=== PATIENT | female | born 1935 | race Caucasian/White ===

== ENCOUNTER → 2017-01-13 | Outpatient (CLI) | payer MEDICARE ==
--- NOTE | 2017-01-16 08:03 | MM ---
Reason for exam: screening (asymptomatic). Last mammogram was performed 2 years and 6 months ago. History: Patient is postmenopausal. Family history of breast cancer in maternal grandmother at age 65. Benign cyst aspiration of the left breast, December 03, 2007. Physical Findings: A clinical breast exam by your physician is recommended on an annual basis and results should be correlated with mammographic findings. MG Screening Mammo w CAD Bilateral CC and MLO view(s) were taken. Prior study comparison: July 08, 2014, bilateral MG screening mammo w CAD. June 18, 2013, bilateral digital screening mammo w/CAD. The breast tissue is heterogeneously dense. This may lower the sensitivity of mammography. Finding: There are typically benign calcifications in both breasts. No significant changes in finding since July 08, 2014 and June 18, 2013. ASSESSMENT: Benign, BI-RAD 2 RECOMMENDATION: Routine screening mammogram of both breasts in 1 year.
== END | disposition home or self-care (01) ==
LOC: RADMAMWWP 10:58
PROVIDERS: ATTEND Obstetrics & Gynecology
DX: Z12.31 Encounter for screening mammogram for malignant neoplasm of breast (principal)

== ENCOUNTER → 2017-12-22 | Outpatient (CLI) | payer MEDICARE ==
--- NOTE | 2017-12-22 13:49 | US ---
EXAMINATION TYPE: US kidneys/renal and bladder DATE OF EXAM: 12/22/2017 COMPARISON: NONE CLINICAL HISTORY: N28.9 Disorder of kidney and ureter; urinary incontinence per patient EXAM MEASUREMENTS: Right Kidney: 9.8 x 4.4 x 3.8 cm Left Kidney: 9.3 x 5.8 x 4.5 cm Post Void Residual Volume: 39.3 mL Right Kidney: No hydronephrosis or masses seen Left Kidney: No hydronephrosis or masses seen Bladder: wnl Bilateral Jets seen: Yes Normal Post Void Residual: yes, although patient attempted to void x 2 to achieve post void volume There is no evidence for hydronephrosis at this point in time. No nephrolithiasis is seen. No asha s are identified. The urinary bladder is anechoic. Bilateral ureteral jets are seen. IMPRESSION: 1. No evidence of hydronephrosis or nephrolithiasis. 2. Post void residual volume within the urinary bladder is upper limits of normal although the patien t attempted to void twice to achieve a normal post void volume.
== END | disposition home or self-care (01) ==
LOC: RADUSWWP 12:36
PROVIDERS: ATTEND Family Medicine
DX: N28.9 Disorder of kidney and ureter, unspecified (principal)
CPT/HCPCS: 76770

== ENCOUNTER → 2019-08-06 | Outpatient (CLI) | payer MEDICARE ==
--- NOTE | 2019-08-08 14:15 | MM ---
Reason for exam: screening (asymptomatic). Last mammogram was performed 2 years and 7 months ago. History: Patient is postmenopausal. Family history of breast cancer in maternal grandmother at age 65. Benign cyst aspiration of the left breast, December 03, 2007. Physical Findings: A clinical breast exam by your physician is recommended on an annual basis and results should be correlated with mammographic findings. MG Screening Mammo w CAD Bilateral CC and MLO view(s) were taken. Prior study comparison: January 13, 2017, bilateral MG screening mammo w CAD. July 08, 2014, bilateral MG screening mammo w CAD. The breast tissue is heterogeneously dense. This may lower the sensitivity of mammography. Benign oil cyst and vascular calcifications. No significant changes when compared with prior studies. ASSESSMENT: Benign, BI-RAD 2 RECOMMENDATION: Routine screening mammogram of both breasts in 1 year.
== END | disposition home or self-care (01) ==
LOC: RADMAMWWP 10:26
PROVIDERS: ATTEND Obstetrics & Gynecology
DX: Z12.31 Encounter for screening mammogram for malignant neoplasm of breast (principal)
CPT/HCPCS: 77067

== ENCOUNTER 2021-01-11 07:31 | Emergency (ER) | payer MEDICARE ==
[2021-01-11 07:44] VITALS: RESP 18; TEMP 98.7
[2021-01-11] MEDS ORDERED: KETOROLAC 15 MG/ML 1 ML VIAL IM STA (07:55)
--- NOTE | 2021-01-11 07:58 | ED ---
General Adult HPI - General Chief complaint: Extremity Injury, Upper Stated complaint: shoulder pain Time Seen by Provider: 01/11/21 07:46 Source: patient, RN notes reviewed Mode of arrival: ambulatory Limitations: no limitations - History of Present Illness Initial comments: 85-year-old female with a past medical history of hyperlipidemia, hypertension, GERD presents to the emergency room for chief, L left shoulder pain. Patient reports she has had pain in the left shoulder since yesterday. She states she was taking off her shirt yesterday and felt a pop and a crunch in her left shoulder. States the pain persisted throughout the night. Patient reports she wants to make sure it is not dislocated. States it hurts to raise the shoulder.Patient has no other complaints at this time including shortness of breath, chest pain, abdominal pain, nausea or vomiting, headache, or visual changes. - Related Data Allergies Allergy/AdvReac Type Severity Reaction Status Date / Time procaine [From Novocain] AdvReac Unknown Verified 01/11/21 07:45 Review of Systems ROS Statement: Those systems with pertinent positive or pertinent negative responses have been documented in the HPI. ROS Other: All systems not noted in ROS Statement are negative. Past Medical History Past Medical History: GERD/Reflux, Hyperlipidemia, Hypertension History of Any Multi-Drug Resistant Organisms: None Reported Past Surgical History: Cholecystectomy Past Psychological History: Anxiety Smoking Status: Never smoker Past Alcohol Use History: None Reported Past Drug Use History: None Reported General Exam Limitations: no limitations General appearance: alert, in no apparent distress Head exam: Present: atraumatic, normocephalic, normal inspection Eye exam: Present: normal appearance, PERRL, EOMI. Absent: scleral icterus, conjunctival injection, periorbital swelling ENT exam: Present: normal exam, mucous membranes moist Neck exam: Present: normal inspection, full ROM. Absent: tenderness, meningismus, lymphadenopathy Respiratory exam: Present: normal lung sounds bilaterally. Absent: respiratory distress, wheezes, rales, rhonchi, stridor Cardiovascular Exam: Present: regular rate, normal rhythm, normal heart sounds. Absent: systolic murmur, diastolic murmur, rubs, gallop, clicks GI/Abdominal exam: Present: soft, normal bowel sounds. Absent: distended, tenderness, guarding, rebound, rigid Extremities exam: Present: full ROM (pt has about 45 flexion and abduction of the left shoulder.), normal capillary refill (cap refill < 2 seconds, radial pulse 2+). Absent: tenderness (no tenderness in the RUE), pedal edema, joint swelling, calf tenderness Course Vital Signs 01/11/21 07:40 Temperature 98.7 F Pulse Rate 73 Respiratory 18 Rate Blood Pressure 151/80 O2 Sat by Pulse 94 L Oximetry Medical Decision Making - Medical Decision Making Vitals are stable. Patient is well-appearing. X-ray of the shoulder and left humerus were obtained. No acute fracture or dislocation in the left humerus or shoulder. I suspect patient likely has a soft tissue injury given mechanism of injury and feeling a pop as well as pain with movement of the shoulder. She was given IM pain medication which did help somewhat. At this time I recommend she takes Tylenol at home and follow up with orthopedics. Referral will be given. She also [facility] well as the on-call orthopedic doctor at . I did discuss risks versus benefits of sling including frozen shoulder. At this time patient is agreeable to discharge home without a sling and doing gentle range of motion. Disposition Clinical Impression: Shoulder pain, left Disposition: HOME SELF-CARE Condition: Good Additional Instructions: Please take Tylenol for pain. Do gentle range of motion with the left shoulder. Follow-up with orthopedics a call in today for the earliest appointment. Return to the emergency room for any worsening symptoms. Is patient prescribed a controlled substance at d/c from ED?: No Referrals: Bayron Sherman DO [Primary Care Provider] - 1-2 days Mikey Villegas DO [Doctor of Osteopathic Medicine] - 1-2 days Varghese Jessica DO [Doctor of Osteopathic Medicine] - 1-2 days Time of Disposition: 08:51
--- NOTE | 2021-01-11 08:23 | XR ---
EXAMINATION TYPE: XR shoulder complete LT, XR humerus LT DATE OF EXAM: 01/11/2021 CLINICAL HISTORY: Pain and limited range of motion after recent injury. TECHNIQUE: Three views of the left shoulder are obtained. 2 views left humerus. COMPARISON: None. FINDINGS: Negative osseous structures are somewhat demineralized. There is no acute fracture/disloca tion evident in the left shoulder. Mild to moderate narrowing and moderate spurring at acromioclavicu lar joint. Mild to moderate narrowing and mild spurring inferior glenohumeral joint.. The visualized ribs are intact and unremarkable. Overlying clothing material is seen. 2 views of left humerus show no acute fracture or dislocation. Visualized portion of left elbow joint appears within normal limits. IMPRESSION: There is no acute fracture or dislocation in the left humerus or shoulder.
[2021-01-11 09:20] VITALS: BP 122/73; PULSE 71
== END 2021-01-11 09:19 | disposition home or self-care (01) ==
LOC: EC 07:31
DX: M25.512 Pain in left shoulder (principal); M79.89 Other specified soft tissue disorders; E78.5 Hyperlipidemia, unspecified; I10 Essential (primary) hypertension; K21.9 Gastro-esophageal reflux disease without esophagitis
CPT/HCPCS: 73030; 73060; 99283; 96372; J1885

== ENCOUNTER 2022-02-07 19:36 | Emergency (ER) | payer MEDICARE ==
[2022-02-07 19:49] LABS: Glucose,Whole Blood 159 mg/dL (70-110)
--- NOTE | 2022-02-07 19:51 | ED ---
General Adult HPI - General Chief complaint: Fall Stated complaint: Fall, Altered Mental Status Time Seen by Provider: 02/07/22 19:41 Source: EMS Mode of arrival: EMS Limitations: altered mental status - History of Present Illness Initial comments: Dictation was produced using [employer] dictation software. please excuse any grammatical, word or spelling errors. Chief Complaint: 86-year-old female presents emergency Department with altered mental status and evidence of head injury History of Present Illness: Patient is a 86-year-old female presents to the emergency department via EMS. Patient is unable to provide history of present at this time. History of present illness obtained from nurse was a report from EMS. Patient allegedly has a history of GERD, dyslipidemia and hypertension. She was last spoke to at approximately 7 AM this morning. Throughout the day people have been trying to contact her and were able to get a hold of her. Patient's daughter went to her house and saw her lying on the ground covered in vomit. Patient does not follow commands. Unable to obtain ROS second or 2 mental status. PHYSICAL EXAM: General Impression: Eyes open, not following commands, anal time 0 out of 3 HEENT: Ecchymoses over the right forehead and periorbital space, Very superficial lacerations to the right maxillary area measuring 1-2 mm each, no nasal septal hematoma, extra-ocular movements intact, pupils equal and reactive to light bilaterally, mucous membranes moist. Cardiovascular: Heart regular rate and rhythm Chest: no retractions, no tachypnea Abdomen: abdomen soft, non-tender, non-distended, no organomegaly Musculoskeletal: Pulses present and equal in all extremities, no peripheral edema Motor: no focal deficits noted Neurological: CN II-XII grossly intact, moves all extremities secondary to noxious stimuli Skin: Intact with no visualized rashes ED course: 86-year-old female presents to the emergency department for altered mental status and concerns of fall. No other history of present illness details are able to be obtained. Patient is evidence of head injury. She's not follow commands. Suspect that patient is high functioning. Follows on with this. Patient is reevaluated at 8:15 PM. Family is at bedside reports that patient lives alone. So allegedly spoke with patient at around 9 AM today she appeared to not be in any sort of distress. Family went to see her today she was found on a rocking chair. EMS reports the patient is high functioning is by herself and has no trouble perform activities of daily living on a regular basis.History was obtained from daughter who is now at the bedside reports that patient was last seen physically normal at around 2 PM yesterday. She did however speak with her over the phone and sounded like patient was at baseline. Family requests aggressive treatment. Computed tomography scan of brain and C-spine shows no acute processes however CT angios shows findings suspicious for stenosis or thrombosis of the left middle cerebral artery. Spoke immediately with stroke neurologist, Dr. Loo who requests access to the CT films. EKG interpretation: Ventricular rate 89, sinus rhythm,. 190, Q 74, QTC 391. No TX prolongation, no QTC prolongation, no ST or T-wave changes noted. No old EKG for comparison Overall, this EKG is unremarkable Spoke with Dr. Loo who reviewed the films and evaluated patient and spoke with family over the stroke robot. Plan is to transfer patient to [facility] to the interventional catheterization lab to have emergent endovascular treatment. Confirmed with [facility] transfer line that they are expecting patient. accepting physician is Dr. Loo, he did speak with ER team and at [facility] ER - Related Data Home Medications Medication Instructions Recorded Confirmed ALPRAZolam [Xanax] 0.5 mg PO BID PRN 01/11/21 01/11/21 Atorvastatin [Lipitor] 20 mg PO HS 01/11/21 01/11/21 Calcium Carbonate [Calcium] 600 mg PO DAILY 01/11/21 01/11/21 Cholecalciferol (Vitamin D3) 75 mcg PO DAILY 01/11/21 01/11/21 [Vitamin D3 (3000 Iu)] Esomeprazole Magnesium [NexIUM] 40 mg PO DAILY 01/11/21 01/11/21 Metoprolol Succinate (ER) [Toprol 50 mg PO DAILY 01/11/21 01/11/21 Xl] Multivitamins, Thera [Multivitamin 1 tab PO DAILY 01/11/21 01/11/21 (formulary)] Sucralfate [Carafate] 1 gm PO DAILY 01/11/21 01/11/21 Vitamin E (Dl,Tocopheryl Acet) 400 unit PO DAILY 01/11/21 01/11/21 [Vitamin E] rOPINIRole HCL [Requip] 0.5 mg PO HS 01/11/21 01/11/21 Allergies Allergy/AdvReac Type Severity Reaction Status Date / Time procaine [From Novocain] Allergy Unknown Verified 02/07/22 19:38 Review of Systems ROS Statement: Those systems with pertinent positive or pertinent negative responses have been documented in the HPI. ROS Other: All systems not noted in ROS Statement are negative. Past Medical History Past Medical History: GERD/Reflux, Hyperlipidemia, Hypertension History of Any Multi-Drug Resistant Organisms: None Reported Past Surgical History: Cholecystectomy Past Psychological History: Anxiety Smoking Status: Never smoker Past Alcohol Use History: None Reported Past Drug Use History: None Reported General Exam Limitations: altered mental status Course Vital Signs 02/07/22 19:38 Pulse Rate 73 Respiratory 16 Rate O2 Sat by Pulse 98 Oximetry Procedures - Laceration Laceration #1 Consent Obtained: verbal consent, emergent situation Indication: laceration Site: face (1cm right maxilla) Description: linear Depth: simple, single layer Size of Sutures: other (dermabond) Technique: other (dermabond) Patient Tolerated Procedure: well Medical Decision Making - Lab Data Result diagrams: 02/07/22 20:09 02/07/22 20:09 Lab Results 02/07/22 02/07/22 02/07/22 Range/Units 19:48 20:09 20:09 WBC 15.0 H (3.8-10.6) k/uL RBC 4.57 (3.80-5.40) m/uL Hgb 14.0 (11.4-16.0) gm/dL Hct 40.7 (34.0-46.0) % MCV 89.3 (80.0-100.0) fL MCH 30.7 (25.0-35.0) pg MCHC 34.4 (31.0-37.0) g/dL RDW 13.3 (11.5-15.5) % Plt Count 367 (150-450) k/uL MPV 8.3 Neutrophils % 86 % Lymphocytes % 9 % Monocytes % 3 % Eosinophils % 0 % Basophils % 0 % Neutrophils # 12.9 H (1.3-7.7) k/uL Lymphocytes # 1.4 (1.0-4.8) k/uL Monocytes # 0.5 (0-1.0) k/uL Eosinophils # 0.1 (0-0.7) k/uL Basophils # 0.1 (0-0.2) k/uL PT 10.7 (9.0-12.0) sec INR 1.0 (<1.2) APTT 21.7 L (22.0-30.0) sec Sodium (137-145) mmol/L Potassium (3.5-5.1) mmol/L Chloride (98-107) mmol/L Carbon Dioxide (22-30) mmol/L Anion Gap mmol/L BUN (7-17) mg/dL Creatinine (0.52-1.04) mg/dL Est GFR (CKD-EPI)AfAm (>60 ml/min/1.73 sqM) Est GFR (CKD-EPI)NonAf (>60 ml/min/1.73 sqM) Glucose (74-99) mg/dL POC Glucose (mg/dL) 159 H (70-110) mg/dL POC Glu [employer] Associate ID Kamron Edward Plasma Lactic Acid Miki (0.7-2.0) mmol/L Calcium (8.4-10.2) mg/dL Magnesium (1.6-2.3) mg/dL Total Bilirubin (0.2-1.3) mg/dL AST (14-36) U/L ALT (4-34) U/L Alkaline Phosphatase (38-126) U/L Troponin I (0.000-0.034) ng/mL Total Protein (6.3-8.2) g/dL Albumin (3.5-5.0) g/dL TSH (0.465-4.680) mIU/L 02/07/22 02/07/22 02/07/22 Range/Units 20:09 20:09 20:09 WBC (3.8-10.6) k/uL RBC (3.80-5.40) m/uL Hgb (11.4-16.0) gm/dL Hct (34.0-46.0) % MCV (80.0-100.0) fL MCH (25.0-35.0) pg MCHC (31.0-37.0) g/dL RDW (11.5-15.5) % Plt Count (150-450) k/uL MPV Neutrophils % % Lymphocytes % % Monocytes % % Eosinophils % % Basophils % % Neutrophils # (1.3-7.7) k/uL Lymphocytes # (1.0-4.8) k/uL Monocytes # (0-1.0) k/uL Eosinophils # (0-0.7) k/uL Basophils # (0-0.2) k/uL PT (9.0-12.0) sec INR (<1.2) APTT (22.0-30.0) sec Sodium 138 (137-145) mmol/L Potassium 4.7 (3.5-5.1) mmol/L Chloride 101 (98-107) mmol/L Carbon Dioxide 26 (22-30) mmol/L Anion Gap 11 mmol/L BUN 24 H (7-17) mg/dL Creatinine 1.02 (0.52-1.04) mg/dL Est GFR (CKD-EPI)AfAm 59 (>60 ml/min/1.73 sqM) Est GFR (CKD-EPI)NonAf 51 (>60 ml/min/1.73 sqM) Glucose 147 H (74-99) mg/dL POC Glucose (mg/dL) (70-110) mg/dL POC Glu [employer] Associate ID Plasma Lactic Acid Miki 2.3 H* (0.7-2.0) mmol/L Calcium 9.0 (8.4-10.2) mg/dL Magnesium 2.1 (1.6-2.3) mg/dL Total Bilirubin 0.9 (0.2-1.3) mg/dL AST 36 (14-36) U/L ALT 19 (4-34) U/L Alkaline Phosphatase 96 (38-126) U/L Troponin I <0.012 (0.000-0.034) ng/mL Total Protein 8.6 H (6.3-8.2) g/dL Albumin 4.5 (3.5-5.0) g/dL TSH 1.330 (0.465-4.680) mIU/L Critical Care Time Critical Care Time: Yes Total Critical Care Time: 33 Disposition Clinical Impression: CVA (cerebral vascular accident) Disposition: OTHER INSTITUTION NOT DEFINED Condition: Critical Referrals: Bayron Sherman DO [Primary Care Provider] - 1-2 days Time of Disposition: 21:32 - Out of Hospital Transfer - Req. Specs Out of Hospital Transfer - Requested Specifics: Other Emergency Center ([facility])
--- NOTE | 2022-02-07 20:05 | CT ---
EXAMINATION TYPE: CT brain rodríguezine wo con DATE OF EXAM: 02/07/2022 COMPARISON: None HISTORY: Fall, altered mental status. CT DLP: 1351.5 mGycm Automated exposure control for dose reduction was used. Images of the brain and cervical spine obtained with no contrast. There is mild cerebral atrophy. There is no mass effect or midline shift. No sign of intracranial hem orrhage. The calvarium is intact. The cervical vertebra have normal alignment. Disc spaces are fairly normal. No compression fracture. Posterior elements are intact. Prevertebral soft tissues are intact. IMPRESSION: Negative CT scan of the cervical spine. Negative CT scan of the brain. Mild right frontal scalp soft tissue swelling noted.
[2022-02-07] MEDS ORDERED: DIPH,PERTUS(ACELL)TETVAC-LF 0.5 ML VIAL IM ONE (20:16)
[2022-02-07 20:18] LABS: Basophils # (A) 0.1 k/uL (0-0.2); Basophils % (A) 0 %; Eosinophils # (A) 0.1 k/uL (0-0.7); Eosinophils % (A) 0 %; HCT 40.7 % (34.0-46.0); Lymphocytes # (A) 1.4 k/uL (1.0-4.8); Lymphocytes % (A) 9 %; MCH 30.7 pg (25.0-35.0); MCHC 34.4 g/dL (31.0-37.0); MCV 89.3 fL (80.0-100.0); Mean Platelet Volume 8.3; Monocytes # (A) 0.5 k/uL (0-1.0); Monocytes % (A) 3 %; Neutrophils # (A) 12.9 k/uL (1.3-7.7); Neutrophils % (A) 86 %; Platelet Count 367 k/uL (150-450); RBC 4.57 m/uL (3.80-5.40); RDW 13.3 % (11.5-15.5)
--- NOTE | 2022-02-07 20:23 | CT ---
EXAMINATION TYPE: CT angio head neck DATE OF EXAM: 02/07/2022 COMPARISON: None HISTORY: Weakness CT DLP: mGycm Automated exposure control for dose reduction was used. CONTRAST: Images obtained from the thoracic aortic arch to the vertex of the brain with the IV contrast. There are Three-D postprocessed images. FINDINGS: There is normal branching pattern of the great vessels on the aortic arch. There is bilateral arteria l flow in the subclavian arteries. There is arterial flow in the common internal and external carotid arteries bilaterally. There is wide patency of the carotid artery bifurcations. There is arterial fl ow in both vertebral arteries. There is arterial flow in the vertebrobasilar artery system. There is arterial flow in the anterior middle and posterior cerebral arteries bilaterally. There appe ars to be significant pruning of branches of the left middle cerebral artery at the anterior sylvian fissure. There is normal enhancement of the venous sinuses. No evidence of intracranial aneurysm or neovascula rity. No mass effect. IMPRESSION: Negative CT angiogram of the neck. There is long segment of absent flow or very little contrast in the left middle cerebral artery in th e left sylvian fissure and consistent with thrombosis or significant stenosis. There is filling of some of the distal branches. There is noted right frontal scalp soft tissue swelling
[2022-02-07] MEDS ORDERED: ASPIRIN 81 MG PO STA ×2 (20:28→20:50)
[2022-02-07] MEDS ORDERED: TOPICAL SKIN ADHESIVE 1 EACH AMP TOPICAL ONE (20:32)
[2022-02-07 20:33] LABS: Prothrombin Time 10.7 sec (9.0-12.0)
[2022-02-07 20:34] LABS: Albumin 4.5 g/dL (3.5-5.0); Magnesium 2.1 mg/dL (1.6-2.3); Potassium 4.7 mmol/L (3.5-5.1); Total Bilirubin 0.9 mg/dL (0.2-1.3); Total Protein 8.6 g/dL (6.3-8.2)
[2022-02-07] MEDS ORDERED: SODIUM CHLORIDE 0.9% 1,000 ML IV STA (20:37)
[2022-02-07 20:52] LABS: Partial Thromboplastin Time 21.7 sec (22.0-30.0)
[2022-02-07 22:13] VITALS: BP 149/72; PULSE 81
[2022-02-07 22:14] VITALS: RESP 12
== END 2022-02-07 22:00 | disposition other institution (70) ==
LOC: EC 19:36
DX: I63.9 Cerebral infarction, unspecified (principal); Z88.4 Allergy status to anesthetic agent; E78.5 Hyperlipidemia, unspecified; I10 Essential (primary) hypertension; W19.XXXA Unspecified fall, initial encounter
CPT/HCPCS: 12011 ×2; 99291 ×2; 90471 ×2; 96361 ×2; 96360 ×2; 36415; 93005; 80053; 83605; 83735; 84443; 84484; 85025; 85610; 85730; 72125; 70496; 70450; 70498; 90715; Q9967

== ENCOUNTER → 2022-03-15 | Outpatient (CLI) | payer MEDICARE ==
[2022-03-15 18:15] LABS: HCT 40.6 % (37.2-46.3); HGB 13.4 g/dL (12.0-15.0); MCH 29.7 pg (27.0-32.0); Mean Platelet Volume 10.4 fL (9.5-12.2); NRBC Per 100 WBC 0 /100 WBCS (0.0-0.0); Platelet Count 347 X 10*3/uL (140-440); RBC 4.51 X 10*6/uL (4.10-5.20); RDW 13.6 % (11.5-14.5); WBC 5.37 X 10*3/uL (4.50-10.00)
[2022-03-15 19:08] LABS: African American GFR (CKD) 48.1 (60.0-200.0); Anion Gap 12.1 mmol/L (10.00-18.00); Blood Urea Nitrogen 13.2 mg/dL (9.0-27.0); Calcium 9.4 mg/dL (8.7-10.3); Carbon Dioxide 23.9 mmol/L (20.0-27.5); Non-African American GFR(CKD) 41.5 (60.0-200.0); Potassium 4.2 mmol/L (3.5-5.5)
== END | disposition home or self-care (01) ==
LOC: LABWHC1 11:03
PROVIDERS: ATTEND Internal Medicine Interventional Cardiology
DX: I48.0 Paroxysmal atrial fibrillation (principal)
CPT/HCPCS: 36415; 80048; 84443; 85027

== ENCOUNTER 2023-01-05 09:43 | Emergency (ER) | payer MEDICARE ==
[2023-01-05] MEDS ORDERED: ALPRAZolam 0.25 MG TAB PO STA (10:05)
[2023-01-05 10:28] LABS: Basophils % (A) 1 %; Eosinophils # (A) 0.1 k/uL (0-0.7); Eosinophils % (A) 3 %; HCT 39.8 % (34.0-46.0); HGB 13.5 gm/dL (11.4-16.0); Lymphocytes # (A) 1.5 k/uL (1.0-4.8); Lymphocytes % (A) 37 %; MCH 28.9 pg (25.0-35.0); MCHC 33.8 g/dL (31.0-37.0); MCV 85.5 fL (80.0-100.0); Mean Platelet Volume 7.5; Monocytes # (A) 0.4 k/uL (0-1.0); Monocytes % (A) 9 %; Neutrophils # (A) 1.9 k/uL (1.3-7.7); Neutrophils % (A) 48 %; Platelet Count 330 k/uL (150-450); RBC 4.65 m/uL (3.80-5.40); RDW 13.2 % (11.5-15.5); WBC 4.1 k/uL (3.8-10.6)
[2023-01-05 10:38] LABS: Albumin 4.3 g/dL (3.5-5.0); Calcium 9.4 mg/dL (8.4-10.2); Magnesium 2.3 mg/dL (1.6-2.3); Potassium 4.1 mmol/L (3.5-5.1); Total Bilirubin 0.6 mg/dL (0.2-1.3); Total Protein 8.1 g/dL (6.3-8.2)
[2023-01-05 10:40] LABS: INR 1.1 (<1.2); Partial Thromboplastin Time 25.1 sec (22.0-30.0); Prothrombin Time 11.1 sec (9.0-12.0)
--- NOTE | 2023-01-05 10:50 | XR ---
EXAMINATION TYPE: XR chest 2V DATE OF EXAM: 01/05/2023 COMPARISON: None HISTORY: 87 year-old female shortness of breath, difficulty breathing, irregular heartbeat TECHNIQUE: AP and lateral views FINDINGS: Heart mildly enlarged. Loop recorder device projects over the left side of the heart. Hyperinflation. Diffuse interstitial density. Possible additional lower thoracic spine. No consolidation or pleural effusion seen. IMPRESSION: Borderline heart size and COPD. Interstitial prominence could reflect bronchitis or chronic asthma. N o focal infiltrate seen.
--- NOTE | 2023-01-05 10:52 | ED ---
General Adult HPI - General Chief complaint: Shortness of Breath Stated complaint: shortness of breath Time Seen by Provider: 01/05/23 09:49 Source: patient, RN notes reviewed, old records reviewed Mode of arrival: ambulatory Limitations: no limitations - History of Present Illness Initial comments: Patient is an 87-year-old female with past medical history remarkable for atrial fibrillation on blood thinners, hypertension, acid reflux, prior stroke, anxiety who presents complaining of progressively worsening shortness of breath for the last 6 months. Denies any lower extremity edema. States she experiences it on a daily basis and it does improve with Xanax. States she woke this morning and was more concerned that she states was somewhat worse in terms of her shortness of breath which is why she presents. States she also gets some heart pa lpitations with it. Feels her heart racing. States his symptoms have passed. He feels improved at this time. Presents for further evaluation at this time. Denies any falls or trauma. Denies any abdominal pain, nausea, vomiting. States symptoms, and go. No known provocative factors however Xanax does seem to help. She does have a heart monitor and she attributes a lot of her symptoms to this heart monitor. Denies any other acute complaints at this time. Presents here for further evaluation at this time with some what chronic symptoms. - Related Data Home Medications Medication Instructions Recorded Confirmed ALPRAZolam [Xanax] 0.5 mg PO BID PRN 01/11/21 01/11/21 Atorvastatin [Lipitor] 20 mg PO HS 01/11/21 01/11/21 Calcium Carbonate [Calcium] 600 mg PO DAILY 01/11/21 01/11/21 Cholecalciferol (Vitamin D3) 75 mcg PO DAILY 01/11/21 01/11/21 [Vitamin D3 (3000 Iu)] Esomeprazole Magnesium [NexIUM] 40 mg PO DAILY 01/11/21 01/11/21 Metoprolol Succinate (ER) [Toprol 50 mg PO DAILY 01/11/21 01/11/21 Xl] Multivitamins, Thera [Multivitamin 1 tab PO DAILY 01/11/21 01/11/21 (formulary)] Sucralfate [Carafate] 1 gm PO DAILY 01/11/21 01/11/21 Vitamin E (Dl,Tocopheryl Acet) 400 unit PO DAILY 01/11/21 01/11/21 [Vitamin E] rOPINIRole HCL [Requip] 0.5 mg PO HS 01/11/21 01/11/21 Allergies Allergy/AdvReac Type Severity Reaction Status Date / Time procaine [From Novocain] Allergy Unknown Verified 01/05/23 09:48 Review of Systems ROS Statement: Those systems with pertinent positive or pertinent negative responses have been documented in the HPI. Review of Systems: CONST: Denies fever EYES: Denies blurry vision ENT: Denies nasal congestion C/V: Denies Chest pain RESP: Endorses intermittent dyspnea GI: Denies abdominal pain : Denies dysuria SKIN: Denies rash. MSK: Denies joint pain. NEURO: Denies headache ROS Other: All systems not noted in ROS Statement are negative. Past Medical History Past Medical History: GERD/Reflux, Hyperlipidemia, Hypertension History of Any Multi-Drug Resistant Organisms: None Reported Past Surgical History: Cholecystectomy Past Psychological History: Anxiety Smoking Status: Never smoker Past Alcohol Use History: None Reported Past Drug Use History: None Reported General Exam - General Exam Comments Initial Comments: General: Appears in no acute distress. Appears anxious. HEAD: Normal with no signs of head trauma. EYES: PERRLA, EOMI, conjunctiva normal, no discharge. ENT: Hearing grossly intact, normal oropharynx. RESPIRATORY: Clear breath sounds bilaterally. No wheezes, rales, or rhonchi. No hypoxia. No increased work of breathing. C/V: Regular rate and rhythm. S1 and S2 auscultated, minimal bilateral lower extremity symmetrical pitting edema, peripheral pulses 2+ and intact throughout ABD: Abd is soft, nontender, nondistended EXT: Normal range of motion, no obvious deformity SKIN: No rashes or lesions observed on exposed skin. NEURO: Alert and oriented x 4. Cranial nerves II-XII intact. No focal sensory or strength deficits. GCS of 15. No focal deficits. Limitations: no limitations Course Vital Signs 01/05/23 01/05/23 01/05/23 09:45 09:53 11:33 Temperature 98.4 F Pulse Rate 76 61 Respiratory 18 24 18 Rate Blood Pressure 157/79 132/69 O2 Sat by Pulse 100 98 Oximetry 01/05/23 01/05/23 11:40 12:04 Temperature 98.1 F Pulse Rate 65 62 Respiratory 30 H 18 Rate Blood Pressure 150/80 O2 Sat by Pulse 99 98 Oximetry Medical Decision Making - Medical Decision Making Was pt. sent in by a medical professional or institution ([facility], [facility], urgent care, hospital, or [facility]...) When possible be specific @ -No Did you speak to anyone other than the patient for history (EMS, parent, family, police, friend...)? What history was obtained from this source @ -No Did you review nursing and triage notes (agree or disagree)? Why? @ -I reviewed and agree with nursing and triage notes Were old charts reviewed (outside hosp., previous admission, EMS record, old EKG, old radiological studies, urgent care reports/EKG's, [facility] records)? Report findings @ -Old charts an EKG reviewed from February 2022 Differential Diagnosis (chest pain, altered mental status, abdominal pain women, abdominal pain men, vaginal bleeding, weakness, fever, dyspnea, syncope, headache, dizziness, GI bleed, back pain, seizure, CVA, palpatations, mental health, musculoskeletal)? @ -Differential Dyspnea: Coronary syndrome, arrhythmia, tamponade, asthma, COPD, pulmonary embolism, pneumonia, pneumothorax, pulmonary effusion, anaphylaxis, diabetic ketoacidosis, flailed chest, pulmonary contusion, diaphragmatic rupture, anemia, neuromuscular, this is not meant to be an all-inclusive list. EKG interpreted by me (3pts min.). @ -As above X-rays interpreted by me (1pt min.). @ -Chest X-ray revealed no obvious acute cardio pulmonary process. CT interpreted by me (1pt min.). @ -None done U/S interpreted by me (1pt. min.). @ -None done What testing was considered but not performed or refused? (CT, X-rays, U/S, labs)? Why? @ -None What meds were considered but not given or refused? Why? @ -None Did you discuss the management of the patient with other professionals (professionals i.e. GER[facility] Peck, [facility], lab, RT, psych nurse, hospice social worker, atomic spectroscopist, teacher, principal gifts officer, registered nurse hh case manager)? Give summary @ -No Was smoking cessation discussed for >3mins.? @ -No Was critical care preformed (if so, how long)? @ -No Were there social determinants of health that impacted care today? How? (Homelessness, low income, unemployed, alcoholism, drug addiction, transportation, low edu. Level, literacy, decrease access to med. care, long term, rehab)? @ -No Was there de-escalation of care discussed even if they declined (Discuss DNR or withdrawal of care, Hospice)? DNR status @ -No What co-morbidities impacted this encounter? (DM, HTN, Smoking, COPD, CAD, Cancer, CVA, ARF, Chemo, Hep., AIDS, mental health diagnosis, sleep apnea, morbid obesity)? @ -None Was patient admitted / discharged? Hospital course, mention meds given and route, prescriptions, significant lab abnormalities, going to OR and other pertinent info. @ -Based on the patient's presentation and physical exam, presents complaining of progressive chronic dyspnea that was somewhat worse this morning but symptoms have resolved. She appears anxious. She does have a cardiac history. He is already on blood thinners for prior stroke in which she says is atrial fibrillation. She has been compliant with all medications. We will obtain cardiopulmonary labs. I have no concern for PE at this time. Vital signs within acceptable limits. She is appearing well but anxious. Does have a history of anxiety and states that her symptoms usually resolve with taking Xanax. She'll be given a dose of her normal exam except time. She was in agreement this plan. His no other acute complaints at this time. EKG showed no signs of acute ischemia. Chest x-ray reveals no obvious acute infectious process or cardiopulmonary process.Patient's labs are remarkable for an undetectable troponin. BNP within normal limits for patient's age. Urin alysis negative for infection. Viral swabs negative. Remainder of the labs are within acceptable limits. On reevaluation, patient is feeling improved following Xanax administration. Does have some mild increased work of breathing when ambulating with a cane, however patient has not exerted and is not short of breath. She does briefs more often when moving. There is no hypoxia or other hemodynamic changes when ambulating. She states she feels like this is the chronic dyspnea she is been dealing with for the last 6 months and has been receiving outpatient therapy for. I did discuss with the patient as well as her family who is at bedside the results of her workup. We'll agree it is safe for the patient be discharged home with close follow-up with PCP. Symptoms seem to be chronic. Also appears to have a clear anxiety component with it as well. They were in agreement this plan. Decision was made jointly with the patient, myself, family members. I instructed the patient to follow up with their PCP in the next 1-3 days. I explained that the patient should return to the emergency department if they experience any worsening symptoms. Strict return precautions were discussed with the patient. The patient expressed understanding of these instructions. I answered all questions that the patient had. The patient was discharged home in good condition with their prescriptions and follow up information. Undiagnosed new problem with uncertain prognosis? @ -No Drug Therapy requiring intensive monitoring for toxicity (Heparin, Nitro, Insulin, Cardizem)? @ -No Were any procedures done? @ -No Diagnosis/symptom? @ -Anxiety, dyspnea Acute, or Chronic, or Acute on Chronic? @ -Chronic Uncomplicated (without systemic symptoms) or Complicated (systemic symptoms)? @ -Uncomplicated Side effects of treatment? @ -none Exacerbation, Progression, or Severe Exacerbation] @ -no Poses a threat to life or bodily function? @ -no - Lab Data Result diagrams: 01/05/23 10:16 01/05/23 10:16 Lab Results 01/05/23 01/05/23 01/05/23 Range/Units 10:16 10:16 10:16 WBC 4.1 (3.8-10.6) k/uL RBC 4.65 (3.80-5.40) m/uL Hgb 13.5 (11.4-16.0) gm/dL Hct 39.8 (34.0-46.0) % MCV 85.5 (80.0-100.0) fL MCH 28.9 (25.0-35.0) pg MCHC 33.8 (31.0-37.0) g/dL RDW 13.2 (11.5-15.5) % Plt Count 330 (150-450) k/uL MPV 7.5 Neutrophils % 48 % Lymphocytes % 37 % Monocytes % 9 % Eosinophils % 3 % Basophils % 1 % Neutrophils # 1.9 (1.3-7.7) k/uL Lymphocytes # 1.5 (1.0-4.8) k/uL Monocytes # 0.4 (0-1.0) k/uL Eosinophils # 0.1 (0-0.7) k/uL Basophils # 0.0 (0-0.2) k/uL PT 11.1 (9.0-12.0) sec INR 1.1 (<1.2) APTT 25.1 (22.0-30.0) sec Sodium (137-145) mmol/L Potassium (3.5-5.1) mmol/L Chloride (98-107) mmol/L Carbon Dioxide (22-30) mmol/L Anion Gap mmol/L BUN (7-17) mg/dL Creatinine (0.52-1.04) mg/dL Est GFR (CKD-EPI)AfAm (>60 ml/min/1.73 sqM) Est GFR (CKD-EPI)NonAf (>60 ml/min/1.73 sqM) Glucose (74-99) mg/dL Calcium (8.4-10.2) mg/dL Magnesium (1.6-2.3) mg/dL Total Bilirubin (0.2-1.3) mg/dL AST (14-36) U/L ALT (4-34) U/L Alkaline Phosphatase (38-126) U/L Troponin I (0.000-0.034) ng/mL NT-Pro-B Natriuret Pep pg/mL Total Protein (6.3-8.2) g/dL Albumin (3.5-5.0) g/dL Urine Color Light Yellow Urine Appearance Clear (Clear) Urine pH 7.5 (5.0-8.0) Ur Specific [place] 1.004 (1.001-1.035) Urine Protein Negative (Negative) Urine Glucose (UA) Negative (Negative) Urine Ketones Negative (Negative) Urine Blood Negative (Negative) Urine Nitrite Negative (Negative) Urine Bilirubin Negative (Negative) Urine Urobilinogen <2.0 (<2.0) mg/dL Ur Leukocyte Esterase Trace H (Negative) Urine RBC <1 (0-5) /hpf Urine WBC 2 (0-5) /hpf Ur Squamous Epith Cells 1 (0-4) /hpf Urine Bacteria Rare H (None) /hpf Urine Mucus Rare H (None) /hpf Influenza Type A (PCR) (Not Detectd) Influenza Type B (PCR) (Not Detectd) RSV (PCR) (Not Detectd) SARS-CoV-2 (PCR) (Not Detectd) 01/05/23 01/05/23 01/05/23 Range/Units 10:16 10:16 10:16 WBC (3.8-10.6) k/uL RBC (3.80-5.40) m/uL Hgb (11.4-16.0) gm/dL Hct (34.0-46.0) % MCV (80.0-100.0) fL MCH (25.0-35.0) pg MCHC (31.0-37.0) g/dL RDW (11.5-15.5) % Plt Count (150-450) k/uL MPV Neutrophils % % Lymphocytes % % Monocytes % % Eosinophils % % Basophils % % Neutrophils # (1.3-7.7) k/uL Lymphocytes # (1.0-4.8) k/uL Monocytes # (0-1.0) k/uL Eosinophils # (0-0.7) k/uL Basophils # (0-0.2) k/uL PT (9.0-12.0) sec INR (<1.2) APTT (22.0-30.0) sec Sodium 140 (137-145) mmol/L Potassium 4.1 (3.5-5.1) mmol/L Chloride 102 (98-107) mmol/L Carbon Dioxide 25 (22-30) mmol/L Anion Gap 13 mmol/L BUN 17 (7-17) mg/dL Creatinine 1.11 H (0.52-1.04) mg/dL Est GFR (CKD-EPI)AfAm 53 (>60 ml/min/1.73 sqM) Est GFR (CKD-EPI)NonAf 46 (>60 ml/min/1.73 sqM) Glucose 100 H (74-99) mg/dL Calcium 9.4 (8.4-10.2) mg/dL Magnesium 2.3 (1.6-2.3) mg/dL Total Bilirubin 0.6 (0.2-1.3) mg/dL AST 27 (14-36) U/L ALT 24 (4-34) U/L Alkaline Phosphatase 93 (38-126) U/L Troponin I <0.012 (0.000-0.034) ng/mL NT-Pro-B Natriuret Pep 269 pg/mL Total Protein 8.1 (6.3-8.2) g/dL Albumin 4.3 (3.5-5.0) g/dL Urine Color Urine Appearance (Clear) Urine pH (5.0-8.0) Ur Specific [place] (1.001-1.035) Urine Protein (Negative) Urine Glucose (UA) (Negative) Urine Ketones (Negative) Urine Blood (Negative) Urine Nitrite (Negative) Urine Bilirubin (Negative) Urine Urobilinogen (<2.0) mg/dL Ur Leukocyte Esterase (Negative) Urine RBC (0-5) /hpf Urine WBC (0-5) /hpf Ur Squamous Epith Cells (0-4) /hpf Urine Bacteria (None) /hpf Urine Mucus (None) /hpf Influenza Type A (PCR) (Not Detectd) Influenza Type B (PCR) (Not Detectd) RSV (PCR) (Not Detectd) SARS-CoV-2 (PCR) (Not Detectd) 01/05/23 Range/Units 10:16 WBC (3.8-10.6) k/uL RBC (3.80-5.40) m/uL Hgb (11.4-16.0) gm/dL Hct (34.0-46.0) % MCV (80.0-100.0) fL MCH (25.0-35.0) pg MCHC (31.0-37.0) g/dL RDW (11.5-15.5) % Plt Count (150-450) k/uL MPV Neutrophils % % Lymphocytes % % Monocytes % % Eosinophils % % Basophils % % Neutrophils # (1.3-7.7) k/uL Lymphocytes # (1.0-4.8) k/uL Monocytes # (0-1.0) k/uL Eosinophils # (0-0.7) k/uL Basophils # (0-0.2) k/uL PT (9.0-12.0) sec INR (<1.2) APTT (22.0-30.0) sec Sodium (137-145) mmol/L Potassium (3.5-5.1) mmol/L Chloride (98-107) mmol/L Carbon Dioxide (22-30) mmol/L Anion Gap mmol/L BUN (7-17) mg/dL Creatinine (0.52-1.04) mg/dL Est GFR (CKD-EPI)AfAm (>60 ml/min/1.73 sqM) Est GFR (CKD-EPI)NonAf (>60 ml/min/1.73 sqM) Glucose (74-99) mg/dL Calcium (8.4-10.2) mg/dL Magnesium (1.6-2.3) mg/dL Total Bilirubin (0.2-1.3) mg/dL AST (14-36) U/L ALT (4-34) U/L Alkaline Phosphatase (38-126) U/L Troponin I (0.000-0.034) ng/mL NT-Pro-B Natriuret Pep pg/mL Total Protein (6.3-8.2) g/dL Albumin (3.5-5.0) g/dL Urine Color Urine Appearance (Clear) Urine pH (5.0-8.0) Ur Specific [place] (1.001-1.035) Urine Protein (Negative) Urine Glucose (UA) (Negative) Urine Ketones (Negative) Urine Blood (Negative) Urine Nitrite (Negative) Urine Bilirubin (Negative) Urine Urobilinogen (<2.0) mg/dL Ur Leukocyte Esterase (Negative) Urine RBC (0-5) /hpf Urine WBC (0-5) /hpf Ur Squamous Epith Cells (0-4) /hpf Urine Bacteria (None) /hpf Urine Mucus (None) /hpf Influenza Type A (PCR) Not Detected (Not Detectd) Influenza Type B (PCR) Not Detected (Not Detectd) RSV (PCR) Not Detected (Not Detectd) SARS-CoV-2 (PCR) Not Detected (Not Detectd) - EKG Data -: EKG Interpreted by Me EKG Comments: 12-lead Electrocardiogram Interpretation Note EKG was reviewed and interpreted by myself. 12-lead ECG performed at 0954 is interpreted by me as revealing normal sinus rhythm at a rate of 76 beats per minute. [place] is normal. [place] interval is 156 ms, QRS duration is 77 ms, QTc is 390 ms.. There is an isolated T-wave inversion in lead II which appears like he may have been present an EKG from February [address] or T wave abnormalities to suggest myocardial ischemia or injury. R wave progression across the precordium was satisfactory. By my interpretation this EKG is non- diagnostic for acute ischemia. Disposition Clinical Impression: Anxiety, Chronic dyspnea Disposition: HOME SELF-CARE Condition: Good Instructions (If sedation given, give patient instructions): Anxiety (ED) Is patient prescribed a controlled substance at d/c from ED?: No Referrals: Bayron Sherman DO [Primary Care Provider] - 1-2 days Time of Disposition: 11:58
[2023-01-05 11:34] LABS: Appearance,Urine Clear (Clear); Bacteria,Urine Rare /hpf; Bilirubin,Urine Negative (Negative); Blood,Urine Negative (Negative); Color,Urine Light Yellow; Glucose,Urine (UA) Negative (Negative); Ketones,Urine Negative (Negative); Leukocyte Esterase,Urine Trace (Negative); Mucus,Urine Rare /hpf; Nitrite,Urine Negative (Negative); PH, Urine 7.5 (5.0-8.0); Protein,Urine Negative (Negative); RBC,Urine <1 /hpf (0-5); Specific Gravity,Urine 1.004 (1.001-1.035); Squamous Epithelial Cell,Urine 1 /hpf (0-4); Urobilinogen,Urine <2.0 mg/dL (<2.0); WBC,Urine 2 /hpf (0-5)
[2023-01-05 12:09] VITALS: BP 150/80; PULSE 62; RESP 18; TEMP 98.1
== END 2023-01-05 12:17 | disposition home or self-care (01) ==
LOC: EC 09:43
DX: F41.9 Anxiety disorder, unspecified (principal); R06.00 Dyspnea, unspecified; I10 Essential (primary) hypertension; I48.91 Unspecified atrial fibrillation; J44.9 Chronic obstructive pulmonary disease, unspecified; E78.5 Hyperlipidemia, unspecified; K21.9 Gastro-esophageal reflux disease without esophagitis; Z79.01 Long term (current) use of anticoagulants; Z79.899 Other long term (current) drug therapy; Z20.822 Contact with and (suspected) exposure to COVID-19; Z90.49 Acquired absence of other specified parts of digestive tract; Z88.8 Allergy status to other drugs, medicaments and biological substances
CPT/HCPCS: 36415; 71046; 80053; 81001; 83735; 83880; 84484; 85025; 85610; 85730; 87636; 93005; 99285

== ENCOUNTER → 2023-01-23 | Outpatient (CLI) | payer MEDICARE ==
--- NOTE | 2023-01-23 14:29 | US ---
EXAMINATION TYPE: US kidneys/renal and bladder DATE OF EXAM: 01/23/2023 COMPARISON: Ultrasound 12/22/2017 CLINICAL INDICATION: Female, 87 years old with history of R94.4 ABNORMAL RESULTS OF KIDNEY FUNCTION S TUDIES; Abnormal labs. EXAM MEASUREMENTS: Right Kidney: 9.2 x 4.8 x 4.1 cm Left Kidney: 9.5 x 5.0 x 4.3 cm Right Kidney: Median anechoic area at hilum, mild hydronephrosis vs dilated renal pelvis Left Kidney: No hydronephrosis or masses seen Bladder: distended, anechoic Bilateral Jets seen There is no evidence for hydronephrosis at this point in time. No nephrolithiasis is seen. No asha s are identified. The urinary bladder is anechoic. Bilateral ureteral jets are seen. IMPRESSION: 1. No evidence of obstructive uropathy. Cortical medullary differentiation maintained bilaterally. 2. Dilated right renal pelvis as seen on prior and 18.
[2023-01-23 15:20] LABS: Creatinine,Urine Random 12.9 mg/dL; Protein/Creatinine Ratio,Urine 0.93
[2023-01-23 20:25] LABS: Appearance,Urine Clear (Clear); Bilirubin,Urine Negative (Negative); Blood,Urine Negative (Negative); Color,Urine Yellow (Yellow); Ketones,Urine Negative (Negative); Nitrite,Urine Negative (Negative); Specific Gravity,Urine 1.004 (1.001-1.030); Urobilinogen,Urine 0.2 E.U./DL
[2023-01-23 20:50] LABS: Bacteria,Urine None Seen (None Seen)
[2023-01-24 02:43] LABS: HCT 42.3 % (37.2-46.3); HGB 13.8 d/dL (12.0-15.0); MCH 29.3 pg (27.0-32.0); MCHC 32.6 d/dL (32.0-37.0); MCV 89.8 FL (80.0-97.0); Mean Platelet Volume 10.8 FL (9.5-12.2); NRBC Per 100 WBC 0 X 10*3/uL (0.00-0.01); Platelet Count 350 X 10*3/uL (140-440); RBC 4.71 X 10*6/uL (4.10-5.20); RDW 13.4 % (11.5-14.5); WBC 6.28 X 10*3/uL (4.50-10.00)
== END | disposition home or self-care (01) ==
LOC: RADUSWWP 13:31
PROVIDERS: ATTEND Family Medicine
DX: N28.89 Other specified disorders of kidney and ureter (principal); R94.4 Abnormal results of kidney function studies
CPT/HCPCS: 76770; 81001; 82570; 84100; 84156; 85027

== ENCOUNTER 2023-05-28 09:43 | Emergency (ER) | payer MEDICARE ==
[2023-05-28 09:58] VITALS: TEMP 98
[2023-05-28] MEDS ORDERED: DIPH,PERTUS(ACELL)TETVAC-LF 0.5 ML VIAL IM ONE (10:08)
--- NOTE | 2023-05-28 10:08 | ED ---
General Adult HPI - General Chief complaint: Extremity Injury, Lower Stated complaint: Left leg laceration Time Seen by Provider: 05/28/23 09:58 Source: patient, family, RN notes reviewed Mode of arrival: ambulatory Limitations: no limitations - History of Present Illness Initial comments: 88-year-old female who presents the emergency department with a chief complaint of leg problem. Patient reports that she was shaving her legs that she is about to get a steroid injection her left knee. She reports that she caught a varicose vein. She reports bleeding at the site. She reports that she is on Eliquis. She denies dizziness, lightheaded, fatigue. She is unsure of last tetanus dose. - Related Data Home Medications Medication Instructions Recorded Confirmed ALPRAZolam [Xanax] 0.5 mg PO BID PRN 01/11/21 01/11/21 Atorvastatin [Lipitor] 20 mg PO HS 01/11/21 01/11/21 Calcium Carbonate [Calcium] 600 mg PO DAILY 01/11/21 01/11/21 Cholecalciferol (Vitamin D3) 75 mcg PO DAILY 01/11/21 01/11/21 [Vitamin D3 (3000 Iu)] Esomeprazole Magnesium [NexIUM] 40 mg PO DAILY 01/11/21 01/11/21 Metoprolol Succinate (ER) [Toprol 50 mg PO DAILY 01/11/21 01/11/21 Xl] Multivitamins, Thera [Multivitamin 1 tab PO DAILY 01/11/21 01/11/21 (formulary)] Sucralfate [Carafate] 1 gm PO DAILY 01/11/21 01/11/21 Vitamin E (Dl,Tocopheryl Acet) 400 unit PO DAILY 01/11/21 01/11/21 [Vitamin E] rOPINIRole HCL [Requip] 0.5 mg PO HS 01/11/21 01/11/21 Allergies Allergy/AdvReac Type Severity Reaction Status Date / Time procaine [From Novocain] Allergy Unknown Verified 05/28/23 09:52 Review of Systems ROS Statement: Those systems with pertinent positive or pertinent negative responses have been documented in the HPI. ROS Other: All systems not noted in ROS Statement are negative. Past Medical History Past Medical History: GERD/Reflux, Hyperlipidemia, Hypertension History of Any Multi-Drug Resistant Organisms: None Reported Past Surgical History: Cholecystectomy Past Psychological History: Anxiety Smoking Status: Never smoker Past Alcohol Use History: None Reported Past Drug Use History: None Reported General Exam - General Exam Comments Initial Comments: General: Alert, in no acute distress Head: atraumatic normocephalic. Eyes PERRL, EOMI intact, mucous membranes moist Respiratory: Lungs clear to auscultation bilaterally Cardiovascular: Heart rate regular rate and rhythm Abdominal: Soft without guarding or rebound Extremities: Normal inspection with full range of motion and normal capillary refill, left lower leg with varicose vein. No active bleeding. 2+ radial pulses. Neuroogic: alert and oriented 3, CN II-XII intact, able to ambulate with steady gait Skin: warm dry and intact with normal color Limitations: no limitations Course Vital Signs 05/28/23 05/28/23 05/28/23 09:49 10:04 10:49 Temperature 98 F Pulse Rate 67 88 88 Respiratory 18 16 16 Rate Blood Pressure 158/88 118/68 145/68 O2 Sat by Pulse 100 98 98 Oximetry - Reevaluation(s) Reevaluation #1: 05/28/23 10:36 Patient leg cleaned. No active bleeding from varicose vein. Patient is agreeable to go home. Medical Decision Making - Medical Decision Making Was pt. sent in by a medical professional or institution (, PA, FLOOR ASSEMBLER, urgent care, hospital, or [facility]...) When possible be specific @ -[No] Did you speak to anyone other than the patient for history (EMS, parent, family, police, friend...)? What history was obtained from this source @ -Daughter Did you review nursing and triage notes (agree or disagree)? Why? @ -[I reviewed and agree with nursing and triage notes] Were old charts reviewed (outside hosp., previous admission, EMS record, old EKG, old radiological studies, urgent care reports/EKG's, [facility] records)? Report findings @ -[No old charts were reviewed] Differential Diagnosis (chest pain, altered mental status, abdominal pain women, abdominal pain men, vaginal bleeding, weakness, fever, dyspnea, syncope, headache, dizziness, GI bleed, back pain, seizure, CVA, palpatations, mental health, musculoskeletal)? @ -[not applicable] EKG interpreted by me (3pts min.). @ -[As above] X-rays interpreted by me (1pt min.). @ -[None done] CT interpreted by me (1pt min.). @ -[None done] U/S interpreted by me (1pt. min.). @ -[None done] What testing was considered but not performed or refused? (CT, X-rays, U/S, labs)? Why? @ -[None] What meds were considered but not given or refused? Why? @ -[None] Did you discuss the management of the patient with other professionals (professionals i.e. DrVaibhav, PA, FLOOR ASSEMBLER, lab, RT, psych nurse, director social service, glass bead maker, teacher, community resource officer, case investigator)? Give summary @ -[No] Was smoking cessation discussed for >3mins.? @ -[No] Was critical care preformed (if so, how long)? @ -[No] Were there social determinants of health that impacted care today? How? (Homelessness, low income, unemployed, alcoholism, drug addiction, transportation, low edu. Level, literacy, decrease access to med. care, fpc, rehab)? @ -[No] Was there de-escalation of care discussed even if they declined (Discuss DNR or withdrawal of care, Hospice)? DNR status @ -[No] What co-morbidities impacted this encounter? (DM, HTN, Smoking, COPD, CAD, Cancer, CVA, ARF, Chemo, Hep., AIDS, mental health diagnosis, sleep apnea, morbid obesity)? @ -[None] Was patient admitted / discharged? Hospital course, mention meds given and route, prescriptions, significant lab abnormalities, going to OR and other pertinent info. @ Discharged. This is a 88-year-old female presents with leg wound. Patient had a pressure bandage applied to the left lower leg. Upon removal varicose vein bleeding. Patient had TXA soaked gauze applied and pressure dressing be applied which she tolerated well. Patient discharged in stable condition. Case ANTON Meredith who patient probably care Undiagnosed new problem with uncertain prognosis? @ -[No] Drug Therapy requiring intensive monitoring for toxicity (Heparin, Nitro, Insulin, Cardizem)? @ -[No] Were any procedures done? @ -[No] Diagnosis/symptom? @ -Varicose Vein of Left Lower Leg Acute, or Chronic, or Acute on Chronic? @ -Acute Uncomplicated (without systemic symptoms) or Complicated (systemic symptoms)? @ -Uncomplicated Side effects of treatment? @ -[No] Exacerbation, Progression, or Severe Exacerbation? @ -[No] Poses a threat to life or bodily function? How? (Chest pain, [place], [place], pneumonia, PE, COPD, DKA, ARF, appy, cholecystitis, CVA, Diverticulitis, Homicidal, Suicidal, threat to staff... and all critical care pts) @ -Low likelihood Disposition Clinical Impression: Varicose vein of leg Disposition: HOME SELF-CARE Condition: Stable Instructions (If sedation given, give patient instructions): Bandage Change (ED), Acute Wounds (ED) Additional Instructions: Please keep a pressure bandage on as long as he can tolerate it PLease check the area daily in the morning and at night Please return to the nearest emergency department if bleeding returns. Is patient prescribed a controlled substance at d/c from ED?: No Referrals: Bayron Sherman DO [Primary Care Provider] - 1-2 days Time of Disposition: 10:38
[2023-05-28] MEDS ORDERED: LIDOCAINE 1% INJ 10MG/ML (20 ML MDV) SQ ONE (10:10)
[2023-05-28 10:16] VITALS: PULSE 88; RESP 16
[2023-05-28] MEDS ORDERED: TRANEXAMIC ACID 1,000 MG/10 ML VIAL IRRIGATION ONE (10:30)
[2023-05-28 10:52] VITALS: BP 145/68
== END 2023-05-28 10:49 | disposition home or self-care (01) ==
LOC: EC 09:43
DX: I83.92 Asymptomatic varicose veins of left lower extremity (principal); I10 Essential (primary) hypertension; E78.5 Hyperlipidemia, unspecified; K21.9 Gastro-esophageal reflux disease without esophagitis; F41.9 Anxiety disorder, unspecified; Z23 Encounter for immunization; Z79.899 Other long term (current) drug therapy; Z88.4 Allergy status to anesthetic agent; Z90.49 Acquired absence of other specified parts of digestive tract
CPT/HCPCS: 90471; 90715; 99283

== ENCOUNTER 2023-05-28 21:05 | Emergency (ER) | payer MEDICARE ==
--- NOTE | 2023-05-28 23:20 | ED ---
Extremity Problem HPI - General Chief complaint: Extremity Problem,Nontraumatic Stated complaint: leg laceration Time Seen by Provider: 05/28/23 21:19 Source: patient, family Mode of arrival: wheelchair - History of Present Illness Initial comments: 88-year-old female presenting with chief complaint of bleeding from varicose vein. Patient was seen here earlier for this issue, the wound was dressed with a TXA-soaked gauze. Patient reports that the bleeding started to resume. Patient initially injured the area while shaving her legs. She is on eliquis. - Related Data Home Medications Medication Instructions Recorded Confirmed ALPRAZolam [Xanax] 0.5 mg PO BID PRN 01/11/21 01/11/21 Atorvastatin [Lipitor] 20 mg PO HS 01/11/21 01/11/21 Calcium Carbonate [Calcium] 600 mg PO DAILY 01/11/21 01/11/21 Cholecalciferol (Vitamin D3) 75 mcg PO DAILY 01/11/21 01/11/21 [Vitamin D3 (3000 Iu)] Esomeprazole Magnesium [NexIUM] 40 mg PO DAILY 01/11/21 01/11/21 Metoprolol Succinate (ER) [Toprol 50 mg PO DAILY 01/11/21 01/11/21 Xl] Multivitamins, Thera [Multivitamin 1 tab PO DAILY 01/11/21 01/11/21 (formulary)] Sucralfate [Carafate] 1 gm PO DAILY 01/11/21 01/11/21 Vitamin E (Dl,Tocopheryl Acet) 400 unit PO DAILY 01/11/21 01/11/21 [Vitamin E] rOPINIRole HCL [Requip] 0.5 mg PO HS 01/11/21 01/11/21 Allergies Allergy/AdvReac Type Severity Reaction Status Date / Time procaine [From Novocain] Allergy Unknown Verified 05/28/23 21:13 Review of Systems ROS Statement: Those systems with pertinent positive or pertinent negative responses have been documented in the HPI. ROS Other: All systems not noted in ROS Statement are negative. Past Medical History Past Medical History: GERD/Reflux, Hyperlipidemia, Hypertension History of Any Multi-Drug Resistant Organisms: None Reported Past Surgical History: Cholecystectomy Past Psychological History: Anxiety Smoking Status: Never smoker Past Alcohol Use History: None Reported Past Drug Use History: None Reported General Exam General appearance: alert, in no apparent distress Head exam: Present: atraumatic, normocephalic, normal inspection Eye exam: Present: normal appearance, EOMI Neck exam: Present: normal inspection, full ROM Respiratory exam: Absent: respiratory distress Neurological exam: Present: alert, oriented X3 Psychiatric exam: Present: normal affect, normal mood Expanded Type of lesion: Present: laceration (Small site over varicose vein with bleeding on the left lower leg) Course Vital Signs 05/28/23 05/28/23 21:11 23:23 Temperature 98.7 F 97.0 F L Pulse Rate 68 65 Respiratory 18 17 Rate Blood Pressure 146/97 136/58 O2 Sat by Pulse 97 96 Oximetry Procedures - Laceration Laceration #1 Consent Obtained: verbal consent Indication: laceration Site: lower extremity (Left lower leg) Size (cm): 1 (Less than 1 cm) Description: linear Depth: simple, single layer Anesthetic Used: lidocaine 1%, with epi Type of Sutures: nylon Size of Sutures: 4-0 Number of Sutures: 1 Technique: simple, interrupted Patient Tolerated Procedure: well Medical Decision Making - Medical Decision Making Was pt. sent in by a medical professional or institution (Dr. PA, ENGINEERING PROFESSOR, urgent care, hospital, or [facility]ci...) When possible be specific @ -No Did you speak to anyone other than the patient for history (EMS, parent, family, police, friend...)? What history was obtained from this source @ -No Did you review nursing and triage notes (agree or disagree)? Why? @ -I reviewed and agree with nursing and triage notes Were old charts reviewed (outside hosp., previous admission, EMS record, old EKG, old radiological studies, urgent care reports/EKG's, [facility] records)? Report findings @ -Today's earlier ER visit was reviewed Differential Diagnosis (chest pain, altered mental status, abdominal pain women, abdominal pain men, vaginal bleeding, weakness, fever, dyspnea, syncope, headache, dizziness, GI bleed, back pain, seizure, CVA, palpatations, mental health, musculoskeletal)? @ -not applicable EKG interpreted by me (3pts min.). @ -As above X-rays interpreted by me (1pt min.). @ -None done CT interpreted by me (1pt min.). @ -None done U/S interpreted by me (1pt. min.). @ -None done What testing was considered but not performed or refused? (CT, X-rays, U/S, labs)? Why? @ -None What meds were considered but not given or refused? Why? @ -None Did you discuss the management of the patient with other professionals (professionals i.e. , PA, ENGINEERING PROFESSOR, lab, RT, psych nurse, certified social workers in health care, custom feed mill operator helper, teacher, catapult and arresting gear officer, case assistant)? Give summary @ -No Was smoking cessation discussed for >3mins.? @ -No Was critical care preformed (if so, how long)? @ -No Were there social determinants of health that impacted care today? How? (Homelessness, low income, unemployed, alcoholism, drug addiction, transportation, low edu. Level, literacy, decrease access to med. care, shelter, rehab)? @ -No Was there de-escalation of care discussed even if they declined (Discuss DNR or withdrawal of care, Hospice)? DNR status @ -No What co-morbidities impacted this encounter? (DM, HTN, Smoking, COPD, CAD, Cancer, CVA, ARF, Chemo, Hep., AIDS, mental health diagnosis, sleep apnea, morbid obesity)? @ -None Was patient admitted / discharged? Hospital course, mention meds given and route, prescriptions, significant lab abnormalities, going to OR and other pertinent info. @ -88-year-old female presenting with chief complaint of recurrent bleeding from wound over her varicose vein. Patient cut herself shaving earlier today. She was seen here earlier today for the same complaint, wound was dressed with TXA soaked gauze. Patient had recurrence of bleeding at home. Area was anesthetized with 1% lidocaine with epi. One suture was applied. Patient was monitored for recurrence of bleeding. Patient did well and had no further bleeding. Educated on wound care and signs of infection. Follow-up with PCP. Report back to ER with any new or worsening symptoms. Discussed return parameters and answered all questions. Patient conveyed verbal understanding and agreed to the plan. I discussed this case in detail with my attending Dr. Holder Undiagnosed new problem with uncertain prognosis? @ -No Drug Therapy requiring intensive monitoring for toxicity (Heparin, Nitro, Insulin, Cardizem)? @ -No Were any procedures done? @ -Suture applied Diagnosis/symptom? @ -Varicose vein Acute, or Chronic, or Acute on Chronic? @ -Acute Uncomplicated (without systemic symptoms) or Complicated (systemic symptoms)? @ -Uncomplicated Side effects of treatment? @ -No Exacerbation, Progression, or Severe Exacerbation? @ -No Poses a threat to life or bodily function? How? (Chest pain, [place], [place], pneumonia, PE, COPD, DKA, ARF, appy, cholecystitis, CVA, Diverticulitis, Homicidal, Suicidal, threat to staff... and all critical care pts) @ -No Disposition Clinical Impression: Varicose vein of leg Disposition: HOME SELF-CARE Condition: Good Instructions (If sedation given, give patient instructions): Care For Your Stitches (ED) Additional Instructions: Follow-up with PCP. Report back to ER with any new or worsening symptoms. Suture may be removed in 10-14 days. Is patient prescribed a controlled substance at d/c from ED?: No Referrals: Bayron Sherman DO [Primary Care Provider] - 1-2 days Time of Disposition: 23:20
[2023-05-28 23:29] VITALS: BP 136/58; PULSE 65; RESP 17; TEMP 97
== END 2023-05-28 23:22 | disposition home or self-care (01) ==
LOC: EC 21:05
DX: S81.812A Laceration without foreign body, left lower leg, initial encounter (principal); I83.812 Varicose veins of left lower extremity with pain; K21.9 Gastro-esophageal reflux disease without esophagitis; E78.5 Hyperlipidemia, unspecified; I10 Essential (primary) hypertension; F41.9 Anxiety disorder, unspecified; Z88.8 Allergy status to other drugs, medicaments and biological substances; Z79.899 Other long term (current) drug therapy; W26.8XXA Contact with other sharp object(s), not elsewhere classified, initial encounter
CPT/HCPCS: 12001; 99282

== ENCOUNTER 2023-07-23 10:22 | Emergency (ER) | payer MEDICARE ==
[2023-07-23 10:37] VITALS: TEMP 98.4
[2023-07-23] MEDS ORDERED: ONDANSETRON ODT 4 MG TAB PO STA (11:19)
--- NOTE | 2023-07-23 11:45 | ED ---
ENT HPI - General Chief complaint: ENT Stated complaint: Dizziness Time Seen by Provider: 07/23/23 11:09 Source: patient, RN notes reviewed Mode of arrival: ambulatory Limitations: no limitations - History of Present Illness Initial comments: Patient is an 88-year-old female presented ER with chief complaint of dizziness. Patient states she has been feeling a pressure sensation in her forehead and the top of her head upon waking in the morning. Patient also was endorsing the left ear pressure. Patient was seen by her PCP and was told she has cerumen in her ear which may be causing some of her dizziness. Patient describes her dizziness as the room is spinning but denies any episodes of syncope. Patient denies any chest pain, shortness of breath, abdominal pain. She does endorse slight nausea currently. Patient states she has been slightly chilly but denies any fevers or night sweats. - Related Data Home Medications Medication Instructions Recorded Confirmed ALPRAZolam [Xanax] 0.5 mg PO BID PRN 01/11/21 01/11/21 Atorvastatin [Lipitor] 20 mg PO HS 01/11/21 01/11/21 Calcium Carbonate [Calcium] 600 mg PO DAILY 01/11/21 01/11/21 Cholecalciferol (Vitamin D3) 75 mcg PO DAILY 01/11/21 01/11/21 [Vitamin D3 (3000 Iu)] Esomeprazole Magnesium [NexIUM] 40 mg PO DAILY 01/11/21 01/11/21 Metoprolol Succinate (ER) [Toprol 50 mg PO DAILY 01/11/21 01/11/21 Xl] Multivitamins, Thera [Multivitamin 1 tab PO DAILY 01/11/21 01/11/21 (formulary)] Sucralfate [Carafate] 1 gm PO DAILY 01/11/21 01/11/21 Vitamin E (Dl,Tocopheryl Acet) 400 unit PO DAILY 01/11/21 01/11/21 [Vitamin E] rOPINIRole HCL [Requip] 0.5 mg PO HS 01/11/21 01/11/21 Previous Rx's Medication Instructions Recorded Azithromycin [Zithromax Z Pack] 1 tab PO DIRECTED #6 tab 07/23/23 Ondansetron Odt [Zofran Odt] 4 mg PO Q8HR PRN #10 tab 07/23/23 Allergies Allergy/AdvReac Type Severity Reaction Status Date / Time procaine [From Novocain] Allergy Unknown Verified 07/23/23 10:30 Review of Systems ROS Statement: Those systems with pertinent positive or pertinent negative responses have been documented in the HPI. ROS Other: All systems not noted in ROS Statement are negative. Past Medical History Past Medical History: CVA/TIA, GERD/Reflux, Hyperlipidemia, Hypertension History of Any Multi-Drug Resistant Organisms: None Reported Past Surgical History: Cholecystectomy, Pacemaker Past Psychological History: Anxiety Smoking Status: Never smoker Past Alcohol Use History: None Reported Past Drug Use History: None Reported General Exam Limitations: no limitations General appearance: alert, in no apparent distress Head exam: Present: atraumatic, normocephalic, normal inspection Eye exam: Present: normal appearance, PERRL, EOMI. Absent: scleral icterus, conjunctival injection, periorbital swelling ENT exam: Present: normal exam, normal oropharynx, mucous membranes moist, TM's normal bilaterally, normal external ear exam (Mild cerumen in left ear) Neck exam: Present: normal inspection. Absent: tenderness, meningismus, lymphadenopathy Respiratory exam: Present: normal lung sounds bilaterally. Absent: respiratory distress, wheezes, rales, rhonchi, stridor Cardiovascular Exam: Present: regular rate, normal rhythm, normal heart sounds. Absent: systolic murmur, diastolic murmur, rubs, gallop, clicks GI/Abdominal exam: Present: soft, normal bowel sounds. Absent: distended, tenderness, guarding, rebound, rigid Extremities exam: Present: normal inspection, full ROM, normal capillary refill. Absent: tenderness, pedal edema, joint swelling, calf tenderness Neurological exam: Present: alert, oriented X3, CN II-XII intact Psychiatric exam: Present: normal affect, normal mood Skin exam: Present: warm, dry, intact, normal color. Absent: rash Course Vital Signs 07/23/23 07/23/23 10:28 13:31 Temperature 98.4 F Pulse Rate 70 64 Respiratory 20 18 Rate Blood Pressure 155/80 181/84 O2 Sat by Pulse 99 99 Oximetry Medical Decision Making - Medical Decision Making Was pt. sent in by a medical professional or institution (, PA, TRANSPLANTER [employer]CHID, urgent care, hospital, or penitentiary...) When possible be specific @ -No Did you speak to anyone other than the patient for history (EMS, parent, family, police, friend...)? What history was obtained from this source @ -Family Did you review nursing and triage notes (agree or disagree)? Why? @ -I reviewed and agree with nursing and triage notes Were old charts reviewed (outside hosp., previous admission, EMS record, old EKG, old radiological studies, urgent care reports/EKG's, penitentiary records)? Report findings @ -No old charts were reviewed Differential Diagnosis (chest pain, altered mental status, abdominal pain women, abdominal pain men, vaginal bleeding, weakness, fever, dyspnea, syncope, h eadache, dizziness, GI bleed, back pain, seizure, CVA, palpatations, mental health, musculoskeletal)? @ -Differential Fever: Pneumonia, viral URI, endocarditis, myocarditis, peric arditis, otitis, sinusitis, peritonsillar Abscess, retropharyngeal Abscess, epiglottitis, peritonitis, appendicitis, Cassie cystitis, diverticulitis, hepatitis, colitis, UTI, PID, TOA, pyelonephritis, prostatitis, epididymitis, meningitis, encephalitis, pulmonary embolism, CVA, thyroid storm, pancreatitis, adrenal crisis, cavernous sinus thrombosis, this is not meant to be an all- inclusive list. EKG interpreted by me (3pts min.). @ -As above X-rays interpreted by me (1pt min.). @ -Chest x-ray shows no acute cardiopulmonary processes. CT interpreted by me (1pt min.). @ -None done U/S interpreted by me (1pt. min.). @ -None done What testing was considered but not performed or refused? (CT, X-rays, U/S, labs)? Why? @ -None What meds were considered but not given or refused? Why? @ -None Did you discuss the management of the patient with other professionals (professionals i.e. , PA, TRANSPLANTER ORCHID, lab, RT, psych nurse, 7th grade social studies teacher, healthcare project manager, teacher, registration officer, case packer and sealer)? Give summary @ -No Was smoking cessation discussed for >3mins.? @ -No Was critical care preformed (if so, how long)? @ -No Were there social determinants of health that impacted care today? How? (Homelessness, low income, unemployed, alcoholism, drug addiction, transportation, low edu. Level, literacy, decrease access to med. care, skilled nursing, rehab)? @ -No Was there de-escalation of care discussed even if they declined (Discuss DNR or withdrawal of care, Hospice)? DNR status @ -No What co-morbidities impacted this encounter? (DM, HTN, Smoking, COPD, CAD, Cancer, CVA, ARF, Chemo, Hep., AIDS, mental health diagnosis, sleep apnea, morbid obesity)? @ -None Was patient admitted / discharged? Hospital course, mention meds given and route, prescriptions, significant lab abnormalities, going to OR and other pertinent info. @ -Discharge. Patient is an 88-year-old female presenting to ER with chief complaint of dizziness. Upon examination, patient's vital signs are stable. Physical exam was significant for mild cerumen in the left external auditory canal. Otherwise physical exam was unremarkable. Viral swabs obtained in the ER were negative. Chest x-ray showed no acute cardiopulmonary process. UA was negative for signs with UTI. EKG showed normal sinus rhythm with no acute ST segment or T-wave abnormalities noted. Patient did receive by mouth Zofran for nausea, with improvement. I discussed with patient's lab and imaging findings. I advised patient to follow-up with ENT as her symptoms may be caused by vertigo. Since patient was having sinus pressure and it has been going on for about one week she will be prescribed azithromycin for URI. Zofran will also be prescribed for nausea. Return parameters were discussed. Patient will be discharged in stable condition with follow-up to PCP/ENT. Patient expressed understanding and agreement with care plan. Undiagnosed new problem with uncertain prognosis? @ -No Drug Therapy requiring intensive monitoring for toxicity (Heparin, Nitro, Insulin, Cardizem)? @ -No Were any procedures done? @ -No Diagnosis/symptom? @ -URI/Bengin paroxysmal positional vertigo Acute, or Chronic, or Acute on Chronic? @ -Acute Uncomplicated (without systemic symptoms) or Complicated (systemic symptoms)? @ -Uncomplicated Side effects of treatment? @ -No Exacerbation, Progression, or Severe Exacerbation? @ -No Poses a threat to life or bodily function? How? (Chest pain, [place], [place], pneumonia, PE, COPD, DKA, ARF, appy, cholecystitis, CVA, Diverticulitis, Homicidal, Suicidal, threat to staff... and all critical care pts) @ -No - Lab Data Lab Results 07/23/23 07/23/23 Range/Units 11:36 11:36 Urine Color Colorless Urine Appearance Clear (Clear) Urine pH 5.5 (5.0-8.0) Ur Specific [place] 1.004 (1.001-1.035) Urine Protein Negative (Negative) Urine Glucose (UA) Negative (Negative) Urine Ketones Negative (Negative) Urine Blood Negative (Negative) Urine Nitrite Negative (Negative) Urine Bilirubin Negative (Negative) Urine Urobilinogen <2.0 (<2.0) mg/dL Ur Leukocyte Esterase Negative (Negative) Influenza Type A (PCR) Not Detected (Not Detectd) Influenza Type B (PCR) Not Detected (Not Detectd) RSV (PCR) Not Detected (Not Detectd) SARS-CoV-2 (PCR) Not Detected (Not Detectd) - EKG Data -: EKG Interpreted by Me EKG Comments: EKG taken at 11:12 shows a normal sinus rhythm with no acute ST segment or T- wave abnormalities noted. Ventricular rate 67, ID interval 176, QRS duration 77, QT/QTC 365/381. - Radiology Data Radiology results: report reviewed, image reviewed Disposition Clinical Impression: Upper respiratory infection, Vertigo Disposition: HOME SELF-CARE Condition: Stable Instructions (If sedation given, give patient instructions): Upper Respiratory Infection (ED) Additional Instructions: Please return to the Emergency Department if symptoms worsen or any other concerns. Please complete full course of antibiotics. Prescriptions: Azithromycin [Zithromax Z Pack] 1 tab PO DIRECTED #6 tab Ondansetron Odt [Zofran Odt] 4 mg PO Q8HR PRN #10 tab PRN Reason: Nausea Is patient prescribed a controlled substance at d/c from ED?: No Referrals: Bayron Sherman DO [Primary Care Provider] - 1-2 days Cezar Cervantes DO [Doctor of Osteopathic Medicine] - 1-2 days Time of Disposition: 13:22
--- NOTE | 2023-07-23 11:52 | XR ---
EXAMINATION TYPE: XR chest 2V DATE OF EXAM: 07/23/2023 11:42 AM CLINICAL INDICATION:Female, 88 years old with history of cough; [facility] COMPARISON: Chest radiographs from 01/05/2023 TECHNIQUE: XR chest 2V Frontal and lateral views of the chest. FINDINGS: Lungs/Pleura: Prominent interstitial lung markings are seen scattered throughout the lungs. No eviden ce of focal consolidation, pneumothorax or pleural effusion. Pulmonary vascularity: Unremarkable. Heart/mediastinum: Cardiomediastinal silhouette is enlarged and stable. Musculoskeletal: No acute osseous pathology. Other findings: None IMPRESSION: No acute cardiopulmonary disease/process.
[2023-07-23 12:14] LABS: Appearance,Urine Clear (Clear); Bilirubin,Urine Negative (Negative); Blood,Urine Negative (Negative); Color,Urine Colorless; Glucose,Urine (UA) Negative (Negative); Ketones,Urine Negative (Negative); Leukocyte Esterase,Urine Negative (Negative); Nitrite,Urine Negative (Negative); PH, Urine 5.5 (5.0-8.0); Protein,Urine Negative (Negative); Specific Gravity,Urine 1.004 (1.001-1.035); Urobilinogen,Urine <2.0 mg/dL (<2.0)
[2023-07-23 13:49] VITALS: BP 181/84; PULSE 64; RESP 18
== END 2023-07-23 13:32 | disposition home or self-care (01) ==
LOC: EC 10:22
DX: H81.12 Benign paroxysmal vertigo, left ear (principal); J06.9 Acute upper respiratory infection, unspecified; I10 Essential (primary) hypertension; E78.5 Hyperlipidemia, unspecified; F41.9 Anxiety disorder, unspecified; K21.9 Gastro-esophageal reflux disease without esophagitis; Z20.822 Contact with and (suspected) exposure to COVID-19; Z79.899 Other long term (current) drug therapy; Z90.49 Acquired absence of other specified parts of digestive tract; Z88.8 Allergy status to other drugs, medicaments and biological substances; Z86.73 Personal history of transient ischemic attack (TIA), and cerebral infarction without residual deficits
CPT/HCPCS: 71046; 81003; 87636; 93005; 99284

== ENCOUNTER 2023-08-17 14:05 | Emergency (ER) | payer MEDICARE ==
--- NOTE | 2023-08-17 14:19 | ED ---
General Adult HPI - General Source: patient, RN notes reviewed Mode of arrival: wheelchair Limitations: no limitations <Varghese Blackwell - Last Filed: 08/17/23 14:18> <Jacek Pugh - Last Filed: 08/17/23 23:25> - General Chief complaint: Chest Pain Stated complaint: Chest Pain Time Seen by Provider: 08/17/23 14:19 - History of Present Illness Initial comments: 88-year-old female presents emergency Department with chief complaint right shoulder pain. Patient states started around 10 PM last night she started h aving some mild achiness in the pain has worsened. She states she has chronic dizziness in which she took Antivert for this is normal for her. She denies any headache, facial numbness, leg pain or leg weakness. She states she has right shoulder pain that radiates down to her elbow. She states that the pain is causing her difficulty moving her right arm. (Varghese Blackwell) This 88-year-old female presents with daughter with the complaint of some right shoulder pain. She states that it started at approximately 10 PM this past evening. She denies any actual trauma or overuse. He describes a mild achiness. She states that it felt somewhat weak but is more related to the pain. She is denies any leg pain or swelling. There is no facial droop. She has had problems with right shoulder in the past related to arthritis. The pain seems radiate down to the right elbow. There is no actual chest pain. No other complaints or modifying factors. (Jacek Pugh) - Related Data Home Medications Medication Instructions Recorded Confirmed ALPRAZolam [Xanax] 0.5 mg PO BID PRN 01/11/21 01/11/21 Atorvastatin [Lipitor] 20 mg PO HS 01/11/21 01/11/21 Calcium Carbonate [Calcium] 600 mg PO DAILY 01/11/21 01/11/21 Cholecalciferol (Vitamin D3) 75 mcg PO DAILY 01/11/21 01/11/21 [Vitamin D3 (3000 Iu)] Esomeprazole Magnesium [NexIUM] 40 mg PO DAILY 01/11/21 01/11/21 Metoprolol Succinate (ER) [Toprol 50 mg PO DAILY 01/11/21 01/11/21 Xl] Multivitamins, Thera [Multivitamin 1 tab PO DAILY 01/11/21 01/11/21 (formulary)] Sucralfate [Carafate] 1 gm PO DAILY 01/11/21 01/11/21 Vitamin E (Dl,Tocopheryl Acet) 400 unit PO DAILY 01/11/21 01/11/21 [Vitamin E] rOPINIRole HCL [Requip] 0.5 mg PO HS 01/11/21 01/11/21 Previous Rx's Medication Instructions Recorded Azithromycin [Zithromax Z Pack] 1 tab PO DIRECTED #6 tab 07/23/23 Ondansetron Odt [Zofran Odt] 4 mg PO Q8HR PRN #10 tab 07/23/23 Lidocaine 5% Patch [Lidoderm] 1 patch TOPICAL DAILY PRN #20 patch 08/17/23 Allergies Allergy/AdvReac Type Severity Reaction Status Date / Time procaine [From Novocain] Allergy Unknown Verified 07/23/23 10:30 Review of Systems ROS Other: All systems not noted in ROS Statement are negative. <Varghese Blackwell - Last Filed: 08/17/23 14:18> ROS Other: All systems not noted in ROS Statement are negative. <Jacek Pugh - Last Filed: 08/17/23 23:25> ROS Statement: Those systems with pertinent positive or pertinent negative responses have been documented in the HPI. Past Medical History Past Medical History: CVA/TIA, GERD/Reflux, Hyperlipidemia, Hypertension Additional Past Medical History / Comment(s): vertigo History of Any Multi-Drug Resistant Organisms: None Reported Past Surgical History: Cholecystectomy, Hernia Repair, Orthopedic Surgery Past Psychological History: Anxiety Smoking Status: Never smoker Past Alcohol Use History: None Reported Past Drug Use History: None Reported <Varghese Blackwell - Last Filed: 08/17/23 14:18> General Exam Limitations: no limitations <Varghese Blackwell - Last Filed: 08/17/23 14:18> <Jacek Pugh - Last Filed: 08/17/23 23:25> - General Exam Comments Initial Comments: Visual Physical Exam Vital signs reviewed General: Well-appearing, nontoxic, no acute distress. Head: Normocephalic, atraumatic Eyes: PERRLA, EOMI ENT: Airway patent Chest: Nonlabored breathing Skin: No visual rash, normal skin tone Neuro: Alert and oriented 3 Musculoskeletal: No gross abnormalities (Varghese Blackwell) GENERAL: The patient is well nourished and well hydrated. VITAL SIGNS: Heart rate, blood pressure, respiratory rate reviewed as recorded in nurse's notes. EYES: Pupils are round and reactive. Extraocular movements are intact. No conjunctival / lid redness or swelling. ENT: No external evidence of injury, swelling, or ecchymosis. Airway is patent. Throat is clear. NECK: Nontender. No swelling or evidence of injury. No subcutaneous emphysema. Trachea is midline. No thyroid mass. HEART: Regular rate and rhythm. Good peripheral pulses. LUNGS/CHEST: Breath sounds clear and equal bilaterally. No rales, rhonchi, or wheezes. No ecchymosis, subcutaneous emphysema, or tenderness. ABDOMEN: Abdomen soft without tenderness. No palpable masses or organomegaly. No peritoneal signs. No abdominal wall swelling or ecchymosis. EXTREMITIES: Tenderness noted to the lateral and superior aspects of the right shoulder. There is pain with any degree of range of motion of the right shoulder. No swelling is identified. Normal muscle tone and function. No thoracolumbar tenderness. NEUROLOGIC: Sensation is grossly intact. Cranial nerve exam reveals face is symmetrical, tongue is midline, speech is clear. SKIN: No abrasions or ecchymosis is noted. No induration or masses noted. PSYCHIATRIC: Alert and oriented. Appropriate behavior and judgment. (Jacek Pugh) Course Vital Signs 08/17/23 08/17/23 14:09 18:10 Temperature 97.4 F L Pulse Rate 74 80 Respiratory 16 20 Rate Blood Pressure 157/73 157/88 O2 Sat by Pulse 98 97 Oximetry Medical Decision Making <Varghese Blackwell - Last Filed: 08/17/23 14:18> - Lab Data Result diagrams: 08/17/23 14:39 08/17/23 14:39 <Jacek Pugh - Last Filed: 08/17/23 23:25> - Medical Decision Making I completed the quick note portion of this chart signed Varghese Blackwell PA-C (Varghese Blackwell) The patient was seen and examined. All diagnostics were reviewed. EKG is completed and does show a normal sinus rhythm at a rate of 68. There is no acute ST or T wave changes noted per my interpretation. Intervals are normal. The patient also had a laboratory analysis which did not show any acute significant abnormalities. Chest x-ray does not show any acute abnormalities but there does appear to be some right shoulder/glenohumeral arthritis per my interpretation. Overall, is felt as though her symptomatology is musculoskeletal in nature. Old records are reviewed and it appears as though she's been here previously with right shoulder pain. She did not take anything for the pain and is apprehensive to taking any medications. Tylenol is recommended. Lidoderm patches are also prescribed. Close follow-up with primary care as recommended. Return parameters are discussed. Was pt. sent in by a medical professional or institution (GERDA Peck, LINEN AIDE, urgent care, hospital, or long-term...) When possible be specific @ -No Did you speak to anyone other than the patient for history (EMS, parent, family, police, friend...)? What history was obtained from this source @ -No Did you review nursing and triage notes (agree or disagree)? Why? @ -I reviewed and agree with nursing and triage notes Were old charts reviewed (outside hosp., previous admission, EMS record, old EKG, old radiological studies, urgent care reports/EKG's, long-term records)? Report findings @ -Old records were reviewed and appears as though she has been in for similar in the past as well. Differential Diagnosis (chest pain, altered mental status, abdominal pain women, abdominal pain men, vaginal bleeding, weakness, fever, dyspnea, syncope, headache, dizziness, GI bleed, back pain, seizure, CVA, palpatations, mental health, musculoskeletal)? @ -Musculoskeletal right shoulder pain, muscle strain, right shoulder arthritis, atypical cardiac ischemia. EKG interpreted by me (3pts min.). @ -As above X-rays interpreted by me (1pt min.). @ -As above CT interpreted by me (1pt min.). @ -None done U/S interpreted by me (1pt. min.). @ -None done What testing was considered but not performed or refused? (CT, X-rays, U/S, labs)? Why? @ -None What meds were considered but not given or refused? Why? @ -None Did you discuss the management of the patient with other professionals (professionals i.e. GERDA Peck, LINEN AIDE, lab, RT, psych nurse, social research assistant, compensation director, teacher, community reinvestment act officer, protective services case worker)? Give summary @ -No Was smoking cessation discussed for >3mins.? @ -No Was critical care preformed (if so, how long)? @ -No Were there social determinants of health that impacted care today? How? (Homelessness, low income, unemployed, alcoholism, drug addiction, transportation, low edu. Level, literacy, decrease access to med. care, penitentiary, rehab)? @ -No Was there de-escalation of care discussed even if they declined (Discuss DNR or withdrawal of care, Hospice)? DNR status @ -No What co-morbidities impacted this encounter? (DM, HTN, Smoking, COPD, CAD, Cancer, CVA, ARF, Chemo, Hep., AIDS, mental health diagnosis, sleep apnea, morbid obesity)? @ -Right shoulder arthritis Was patient admitted / discharged? Hospital course, mention meds given and route, prescriptions, significant lab abnormalities, going to OR and other pertinent info. @ -Judgment, see above. Undiagnosed new problem with uncertain prognosis? @ -No Drug Therapy requiring intensive monitoring for toxicity (Heparin, Nitro, Insulin, Cardizem)? @ -No Were any procedures done? @ -No Diagnosis/symptom? @ -Musculoskeletal right shoulder pain, right shoulder arthritis Acute, or Chronic, or Acute on Chronic? @ -Acute on chronic Uncomplicated (without systemic symptoms) or Complicated (systemic symptoms)? @ -Uncomplicated Side effects of treatment? @ -No Exacerbation, Progression, or Severe Exacerbation? @ -No Poses a threat to life or bodily function? How? (Chest pain, [place], [place], pneumonia, PE, COPD, DKA, ARF, appy, cholecystitis, CVA, Diverticulitis, Homicidal, Suicidal, threat to staff... and all critical care pts) @ -No (Jacek Pugh) - Lab Data Lab Results 08/17/23 08/17/23 08/17/23 Range/Units 14:39 14:39 14:39 WBC 9.7 (3.8-10.6) k/uL RBC 4.42 (3.80-5.40) m/uL Hgb 13.1 (11.4-16.0) gm/dL Hct 37.8 (34.0-46.0) % MCV 85.6 (80.0-100.0) fL MCH 29.6 (25.0-35.0) pg MCHC 34.5 (31.0-37.0) g/dL RDW 12.5 (11.5-15.5) % Plt Count 356 (150-450) k/uL MPV 7.3 Neutrophils % 78 % Lymphocytes % 15 % Monocytes % 6 % Eosinophils % 0 % Basophils % 0 % Neutrophils # 7.5 (1.3-7.7) k/uL Lymphocytes # 1.4 (1.0-4.8) k/uL Monocytes # 0.6 (0-1.0) k/uL Eosinophils # 0.0 (0-0.7) k/uL Basophils # 0.0 (0-0.2) k/uL Sodium 133 L (137-145) mmol/L Potassium 4.1 (3.5-5.1) mmol/L Chloride 101 (98-107) mmol/L Carbon Dioxide 21 L (22-30) mmol/L Anion Gap 11 mmol/L BUN 22 H (7-17) mg/dL Creatinine 0.82 (0.52-1.04) mg/dL Est GFR (CKD-EPI)AfAm 75 (>60 ml/min/1.73 sqM) Est GFR (CKD-EPI)NonAf 65 (>60 ml/min/1.73 sqM) Glucose 122 H (74-99) mg/dL Calcium 8.8 (8.4-10.2) mg/dL Magnesium 2.1 (1.6-2.3) mg/dL Total Bilirubin 0.6 (0.2-1.3) mg/dL AST 21 (14-36) U/L ALT 16 (4-34) U/L Alkaline Phosphatase 109 (38-126) U/L Troponin I <0.012 (0.000-0.034) ng/mL Total Protein 7.7 (6.3-8.2) g/dL Albumin 3.9 (3.5-5.0) g/dL Disposition <Varghese Blackwell - Last Filed: 08/17/23 14:18> Is patient prescribed a controlled substance at d/c from ED?: No Time of Disposition: 17:36 <Jacek Pugh - Last Filed: 08/17/23 23:25> Clinical Impression: Shoulder pain, Shoulder arthritis Disposition: HOME SELF-CARE Condition: Good Instructions (If sedation given, give patient instructions): Shoulder Pain (ED), Arthritis (ED) Additional Instructions: Please also take tylenol as needed for pain. Prescriptions: Lidocaine 5% Patch [Lidoderm] 1 patch TOPICAL DAILY PRN #20 patch PRN Reason: Pain Referrals: Bayron Sherman DO [Primary Care Provider] - 1-2 days
[2023-08-17 14:23] VITALS: TEMP 97.4
[2023-08-17 14:48] LABS: Basophils % (A) 0 %; Eosinophils % (A) 0 %; HCT 37.8 % (34.0-46.0); HGB 13.1 gm/dL (11.4-16.0); Lymphocytes # (A) 1.4 k/uL (1.0-4.8); Lymphocytes % (A) 15 %; MCH 29.6 pg (25.0-35.0); MCHC 34.5 g/dL (31.0-37.0); MCV 85.6 fL (80.0-100.0); Mean Platelet Volume 7.3; Monocytes # (A) 0.6 k/uL (0-1.0); Monocytes % (A) 6 %; Neutrophils # (A) 7.5 k/uL (1.3-7.7); Neutrophils % (A) 78 %; Platelet Count 356 k/uL (150-450); RBC 4.42 m/uL (3.80-5.40); RDW 12.5 % (11.5-15.5); WBC 9.7 k/uL (3.8-10.6)
--- NOTE | 2023-08-17 15:19 | XR ---
EXAMINATION TYPE: XR chest 2V DATE OF EXAM: 08/17/2023 COMPARISON: 07/13/2023 INDICATION: Chest pain TECHNIQUE: Frontal and lateral views of the chest are obtained. FINDINGS: The heart size is normal. The pulmonary vasculature is normal. The lungs are clear. There is a radiolucent area overlying the lower thoracic spine which may be a foreign body. IMPRESSION: 1. No acute pulmonary process. 2. Potential radiolucent foreign body overlying the lower thoracic region frontal projection.
[2023-08-17 15:28] LABS: ALT 16 U/L (4-34); AST 21 U/L (14-36); African American GFR (CKD) 75 (>60 ml/min/1.73 sqM); Albumin 3.9 g/dL (3.5-5.0); Alkaline Phosphatase 109 U/L (38-126); Anion Gap 11 mmol/L; Blood Urea Nitrogen 22 mg/dL (7-17); Calcium 8.8 mg/dL (8.4-10.2); Carbon Dioxide 21 mmol/L (22-30); Chloride 101 mmol/L (98-107); Glucose 122 mg/dL (74-99); Magnesium 2.1 mg/dL (1.6-2.3); Non-African American GFR(CKD) 65 (>60 ml/min/1.73 sqM); Potassium 4.1 mmol/L (3.5-5.1); Sodium 133 mmol/L (137-145); Total Bilirubin 0.6 mg/dL (0.2-1.3); Total Protein 7.7 g/dL (6.3-8.2)
[2023-08-17 18:18] VITALS: BP 157/88; PULSE 80; RESP 20
== END 2023-08-17 18:11 | disposition home or self-care (01) ==
LOC: EC 14:05
DX: M19.011 Primary osteoarthritis, right shoulder (principal); K21.9 Gastro-esophageal reflux disease without esophagitis; E78.5 Hyperlipidemia, unspecified; I10 Essential (primary) hypertension; F41.9 Anxiety disorder, unspecified; Z79.899 Other long term (current) drug therapy; Z88.8 Allergy status to other drugs, medicaments and biological substances
CPT/HCPCS: 36415; 71046; 80053; 83735; 84484; 85025; 93005; 99285

== ENCOUNTER 2023-09-24 09:01 | Emergency (ER) | payer MEDICARE ==
[2023-09-24] MEDS ORDERED: ACETAMINOPHEN TAB 500 MG TAB PO STA (09:16)
--- NOTE | 2023-09-24 09:17 | ED ---
General Adult HPI - General Chief complaint: ENT Stated complaint: sore throat Time Seen by Provider: 09/24/23 09:07 Source: patient, family, RN notes reviewed Mode of arrival: ambulatory Limitations: no limitations - History of Present Illness Initial comments: Patient is a pleasant 88-year-old female present to the emergency department sore throat. Onset of symptoms was yesterday. Patient has sore throat, more on the right side. Also right earache. Patient did have fever last night. No dyspnea. - Related Data Home Medications Medication Instructions Recorded Confirmed ALPRAZolam [Xanax] 0.5 mg PO BID PRN 01/11/21 01/11/21 Atorvastatin [Lipitor] 20 mg PO HS 01/11/21 01/11/21 Calcium Carbonate [Calcium] 600 mg PO DAILY 01/11/21 01/11/21 Cholecalciferol (Vitamin D3) 75 mcg PO DAILY 01/11/21 01/11/21 [Vitamin D3 (3000 Iu)] Esomeprazole Magnesium [NexIUM] 40 mg PO DAILY 01/11/21 01/11/21 Metoprolol Succinate (ER) [Toprol 50 mg PO DAILY 01/11/21 01/11/21 Xl] Multivitamins, Thera [Multivitamin 1 tab PO DAILY 01/11/21 01/11/21 (formulary)] Sucralfate [Carafate] 1 gm PO DAILY 01/11/21 01/11/21 Vitamin E (Dl,Tocopheryl Acet) 400 unit PO DAILY 01/11/21 01/11/21 [Vitamin E] rOPINIRole HCL [Requip] 0.5 mg PO HS 01/11/21 01/11/21 Previous Rx's Medication Instructions Recorded Azithromycin [Zithromax Z Pack] 1 tab PO DIRECTED #6 tab 07/23/23 Ondansetron Odt [Zofran Odt] 4 mg PO Q8HR PRN #10 tab 07/23/23 Lidocaine 5% Patch [Lidoderm] 1 patch TOPICAL DAILY PRN #20 patch 08/17/23 Amoxicillin 500 mg PO Q8H #30 capsule 09/24/23 Allergies Allergy/AdvReac Type Severity Reaction Status Date / Time procaine [From Novocain] Allergy Unknown Verified 09/24/23 09:06 Review of Systems ROS Statement: Those systems with pertinent positive or pertinent negative responses have been documented in the HPI. ROS Other: All systems not noted in ROS Statement are negative. Constitutional: Reports: as per HPI, fever Eyes: Denies: eye pain ENT: Reports: as per HPI, ear pain, throat pain Respiratory: Denies: cough, dyspnea Cardiovascular: Denies: chest pain Endocrine: Denies: fatigue Gastrointestinal: Denies: abdominal pain Past Medical History Past Medical History: CVA/TIA, GERD/Reflux, Hyperlipidemia, Hypertension Additional Past Medical History / Comment(s): vertigo History of Any Multi-Drug Resistant Organisms: None Reported Past Surgical History: Cholecystectomy, Hernia Repair, Orthopedic Surgery Past Psychological History: Anxiety Smoking Status: Never smoker Past Alcohol Use History: None Reported Past Drug Use History: None Reported General Exam Limitations: no limitations General appearance: alert, in no apparent distress Head exam: Present: normocephalic Eye exam: Present: normal appearance ENT exam: Present: TM's normal bilaterally, other (Right pharynx with mild erythema) Neck exam: Present: normal inspection. Absent: tenderness, meningismus, lymphadenopathy Respiratory exam: Present: normal lung sounds bilaterally Cardiovascular Exam: Absent: regular rate, normal rhythm GI/Abdominal exam: Present: soft. Absent: tenderness Extremities exam: Present: normal inspection Neurological exam: Present: alert Psychiatric exam: Present: normal affect, normal mood Skin exam: Present: normal color Course Vital Signs 09/24/23 09:04 Temperature 99.1 F Pulse Rate 75 Respiratory 20 Rate Blood Pressure 149/65 O2 Sat by Pulse 98 Oximetry Medical Decision Making - Medical Decision Making Was pt. sent in by a medical professional or institution (, PA, [employer], urgent care, hospital, or jail...) When possible be specific @ -No Did you speak to anyone other than the patient for history (EMS, parent, family, police, friend...)? What history was obtained from this source @ -Family is present and helps provide history including onset of symptoms Did you review nursing and triage notes (agree or disagree)? Why? @ -I reviewed and agree with nursing and triage notes Were old charts reviewed (outside hosp., previous admission, EMS record, old EKG, old radiological studies, urgent care reports/EKG's, jail records)? Report findings @ -No old charts were reviewed Differential Diagnosis (chest pain, altered mental status, abdominal pain women, abdominal pain men, vaginal bleeding, weakness, fever, dyspnea, syncope, headache, dizziness, GI bleed, back pain, seizure, CVA, palpatations, mental health, musculoskeletal)? @ -Differential Fever: Pneumonia, viral URI, endocarditis, myocarditis, pericarditis, otitis, sinusitis, peritonsillar Abscess, retropharyngeal Abscess, epiglottitis, peritonitis, appendicitis, Cassie cystitis, diverticulitis, hepatitis, colitis, UTI, PID, TOA, pyelonephritis, prostatitis, epididymitis, meningitis, e ncephalitis, pulmonary embolism, CVA, thyroid storm, pancreatitis, adrenal crisis, cavernous sinus thrombosis, this is not meant to be an all-inclusive list. EKG interpreted by me (3pts min.). @ -As above X-rays interpreted by me (1pt min.). @ -None done CT interpreted by me (1pt min.). @ -None done U/S interpreted by me (1pt. min.). @ -None done What testing was considered but not performed or refused? (CT, X-rays, U/S, labs)? Why? @ -None What meds were considered but not given or refused? Why? @ -None Did you discuss the management of the patient with other professionals (professionals i.e. , PA, [employer], lab, RT, psych nurse, perinatal social worker, director of corporate communications, teacher, police patrol officer, therapeutic case manager)? Give summary @ -No Was smoking cessation discussed for >3mins.? @ -No Was critical care preformed (if so, how long)? @ -No Were there social determinants of health that impacted care today? How? (Homelessness, low income, unemployed, alcoholism, drug addiction, transportation, low edu. Level, literacy, decrease access to med. care, [facility], rehab)? @ -No Was there de-escalation of care discussed even if they declined (Discuss DNR or withdrawal of care, Hospice)? DNR status @ -No What co-morbidities impacted this encounter? (DM, HTN, Smoking, COPD, CAD, Cancer, CVA, ARF, Chemo, Hep., AIDS, mental health diagnosis, sleep apnea, morbid obesity)? @ -None Was patient admitted / discharged? Hospital course, mention meds given and route, prescriptions, significant lab abnormalities, going to OR and other pertinent info. @ -Patient reevaluated and feeling better. Patient and family are updated on results and need for follow-up as well as prescription. Undiagnosed new problem with uncertain prognosis? @ -No Drug Therapy requiring intensive monitoring for toxicity (Heparin, Nitro, Insulin, Cardizem)? @ -No Were any procedures done? @ -No Diagnosis/symptom? @ -Tonsillitis Acute, or Chronic, or Acute on Chronic? @ -Acute Uncomplicated (without systemic symptoms) or Complicated (systemic symptoms)? @ -Default Side effects of treatment? @ -No Exacerbation, Progression, or Severe Exacerbation? @ -No Poses a threat to life or bodily function? How? (Chest pain, [place], [place], pneumonia, PE, COPD, DKA, ARF, appy, cholecystitis, CVA, Diverticulitis, Homicidal, Suicidal, threat to staff... and all critical care pts) @ -No - Lab Data Lab Results 09/24/23 09/24/23 Range/Units 09:22 09:22 Influenza Type A (PCR) Not Detected (Not Detectd) Influenza Type B (PCR) Not Detected (Not Detectd) RSV (PCR) Not Detected (Not Detectd) SARS-CoV-2 (PCR) Not Detected (Not Detectd) Group A Strep (PCR) NOT DETECTED (Not Detectd) Disposition Clinical Impression: Tonsillitis Disposition: HOME SELF-CARE Condition: Stable Instructions (If sedation given, give patient instructions): Tonsillitis (ED) Additional Instructions: [id number] Tylenol as needed. Prescription sent to pharmacy. Please do follow-up with your doctor in the next day or 2 for recheck. Return for difficulty breathing, difficulty swallowing, worsening or changing symptoms or other concerns. Prescriptions: Amoxicillin 500 mg PO Q8H #30 capsule Is patient prescribed a controlled substance at d/c from ED?: No Referrals: Bayron Sherman DO [Primary Care Provider] - 1-2 days Time of Disposition: 10:44
[2023-09-24] MEDS: ACETAMINOPHEN TAB 325 MG TAB PO STA (09:36)
[2023-09-24 11:02] VITALS: BP 134/70; PULSE 68; RESP 18; TEMP 98.1
== END 2023-09-24 10:56 | disposition home or self-care (01) ==
LOC: EC 09:01
DX: J03.90 Acute tonsillitis, unspecified (principal); E78.5 Hyperlipidemia, unspecified; I10 Essential (primary) hypertension; K21.9 Gastro-esophageal reflux disease without esophagitis; F41.9 Anxiety disorder, unspecified; Z88.8 Allergy status to other drugs, medicaments and biological substances; Z79.899 Other long term (current) drug therapy; Z20.822 Contact with and (suspected) exposure to COVID-19
CPT/HCPCS: 87636; 87651; 99283

== ENCOUNTER 2024-03-03 10:44 | Emergency (ER) | payer MEDICARE ==
[2024-03-03 12:00] LABS: Basophils % (A) 0 %; Eosinophils # (A) 0.1 k/uL (0-0.7); Eosinophils % (A) 1 %; HCT 41.8 % (34.0-46.0); HGB 13.7 gm/dL (11.4-16.0); Lymphocytes # (A) 1.8 k/uL (1.0-4.8); Lymphocytes % (A) 24 %; MCH 28.1 pg (25.0-35.0); MCHC 32.7 g/dL (31.0-37.0); Mean Platelet Volume 6.8; Monocytes # (A) 0.6 k/uL (0-1.0); Monocytes % (A) 8 %; Neutrophils # (A) 4.7 k/uL (1.3-7.7); Neutrophils % (A) 65 %; Platelet Count 530 k/uL (150-450); RBC 4.86 m/uL (3.80-5.40); RDW 13.1 % (11.5-15.5); WBC 7.2 k/uL (3.8-10.6)
[2024-03-03 12:10] LABS: ALT 16 U/L (4-34); AST 21 U/L (14-36); African American GFR (CKD) 60 (>60 ml/min/1.73 sqM); Albumin 4.3 g/dL (3.5-5.0); Alkaline Phosphatase 78 U/L (38-126); Anion Gap 9 mmol/L; Blood Urea Nitrogen 23 mg/dL (7-17); Calcium 9.4 mg/dL (8.4-10.2); Carbon Dioxide 26 mmol/L (22-30); Chloride 102 mmol/L (98-107); Glucose 99 mg/dL (74-99); Non-African American GFR(CKD) 52 (>60 ml/min/1.73 sqM); Potassium 3.5 mmol/L (3.5-5.1); Sodium 137 mmol/L (137-145); Total Bilirubin 0.5 mg/dL (0.2-1.3); Total Protein 8.1 g/dL (6.3-8.2)
[2024-03-03 12:19] LABS: INR 0.9 (<1.2); Prothrombin Time 10.5 sec (10.0-12.5)
[2024-03-03] MEDS: OXYMETAZOLINE 0.05% NASL SPRAY 1 SPRAY BOTTLE NASAL STA (12:36)
--- NOTE | 2024-03-03 13:08 | ED ---
ENT HPI - General Chief complaint: ENT Stated complaint: Bloody Nose Time Seen by Provider: 03/03/24 12:21 Source: patient, RN notes reviewed Mode of arrival: ambulatory Limitations: no limitations - History of Present Illness Initial comments: This is an 88-year-old female who presents to the emergency department for a nosebleed. States that this is from the left nostril. This has been occurring intermittently for the last 10 days. She has been able to get this to stop, however it then returns with activity and turning her head. Denies any pain associated with this, however she has had some congestion and feels like she may have COVID or another URI. Aside from still feeling fatigued, the URI symptoms have improved. She is also being treated with Paxlovid. Denies any chest pain or shortness of breath. She is on Eliquis due to hx of a stroke. MD complaint: epistaxis - Related Data Home Medications Medication Instructions Recorded Confirmed ALPRAZolam [Xanax] 0.5 mg PO BID PRN 01/11/21 01/11/21 Atorvastatin [Lipitor] 20 mg PO HS 01/11/21 01/11/21 Calcium Carbonate [Calcium] 600 mg PO DAILY 01/11/21 01/11/21 Cholecalciferol (Vitamin D3) 75 mcg PO DAILY 01/11/21 01/11/21 [Vitamin D3 (3000 Iu)] Esomeprazole Magnesium [NexIUM] 40 mg PO DAILY 01/11/21 01/11/21 Metoprolol Succinate (ER) [Toprol 50 mg PO DAILY 01/11/21 01/11/21 Xl] Multivitamins, Thera [Multivitamin 1 tab PO DAILY 01/11/21 01/11/21 (formulary)] Sucralfate [Carafate] 1 gm PO DAILY 01/11/21 01/11/21 Vitamin E (Dl,Tocopheryl Acet) 400 unit PO DAILY 01/11/21 01/11/21 [Vitamin E] rOPINIRole HCL [Requip] 0.5 mg PO HS 01/11/21 01/11/21 Previous Rx's Medication Instructions Recorded Azithromycin [Zithromax Z Pack] 1 tab PO DIRECTED #6 tab 07/23/23 Ondansetron Odt [Zofran Odt] 4 mg PO Q8HR PRN #10 tab 07/23/23 Lidocaine 5% Patch [Lidoderm] 1 patch TOPICAL DAILY PRN #20 patch 08/17/23 Amoxicillin 500 mg PO Q8H #30 capsule 09/24/23 Allergies Allergy/AdvReac Type Severity Reaction Status Date / Time procaine [From Novocain] Allergy Unknown Verified 03/03/24 11:14 Review of Systems ROS Statement: Those systems with pertinent positive or pertinent negative responses have been documented in the HPI. ROS Other: All systems not noted in ROS Statement are negative. Past Medical History Past Medical History: CVA/TIA, GERD/Reflux, Hyperlipidemia, Hypertension Additional Past Medical History / Comment(s): vertigo History of Any Multi-Drug Resistant Organisms: None Reported Past Surgical History: Cholecystectomy, Hernia Repair, Orthopedic Surgery Past Psychological History: Anxiety Smoking Status: Never smoker Past Alcohol Use History: None Reported Past Drug Use History: None Reported General Exam Limitations: no limitations General appearance: alert, in no apparent distress Head exam: Present: atraumatic, normocephalic, normal inspection ENT exam: Present: other (Blood in the left nare. No septal hematoma) Respiratory exam: Present: normal lung sounds bilaterally. Absent: respiratory distress, wheezes, rales, rhonchi, stridor Cardiovascular Exam: Present: regular rate, normal rhythm, normal heart sounds. Absent: systolic murmur, diastolic murmur, rubs, gallop, clicks Neurological exam: Present: alert, oriented X3, CN II-XII intact Psychiatric exam: Present: normal affect, normal mood Skin exam: Present: warm, dry, intact, normal color. Absent: rash Course Vital Signs 03/03/24 03/03/24 11:09 14:17 Temperature 97.3 F L 97.6 F Pulse Rate 56 L 66 Respiratory 18 16 Rate Blood Pressure 151/67 137/68 O2 Sat by Pulse 99 96 Oximetry Medical Decision Making - Medical Decision Making This is an 88-year-old female who presents to the emergency department for a nosebleed. Was pt. sent in by a medical professional or institution? @ -No Did you speak to anyone other than the patient for history? @ -No Did you review nursing and triage notes? @ -Yes, and I agree, it is accurate with regards to the patient's symptoms. Were old charts reviewed? @ -No Differential Diagnosis? @ -Differential Epistaxis: Coagulopathy, allergic rhinitis, injury, this is not meant to be an all- inclusive list. EKG interpreted by me (3pts min.)? @ -EKG interpreted by me demonstrating the following: Sinus rhythm. Ventricular rate 65 bpm, FL interval 159 ms, QRS duration 94 ms, QTc 401 ms. X-rays interpreted by me (1pt min.)? @ -Not obtained CT interpreted by me (1pt min.)? @ -Not obtained U/S interpreted by me (1pt. min.)? @ -Not obtained What testing was considered but not performed? (CT, X-rays, U/S, labs)? Why? @ -None What meds were considered but not given? Why? @ -None Did you discuss the management of the patient with other professionals? @ -No Did you reconcile home meds? @ -No Was smoking cessation discussed for >3mins.? @ -No Was critical care preformed (if so, how long)? @ -No Were there social determinants of health that impacted care today? How? (Homelessness, low income, unemployed, alcoholism, drug addiction, transportation, low edu. Level, literacy, decrease access to med. care, prison, rehab)? @ -No Was there de-escalation of care discussed even if they declined? (Discuss DNR or withdrawal of care, Hospice)? @ -No What co-morbidities impacted this encounter? (DM, HTN, Smoking, COPD, CAD, Cancer, CVA, Hep., AIDS, mental health diagnosis, sleep apnea, morbid obesity)? @ -Hx of CVA Was patient admitted / discharged? @ -Discharged. Lab work unremarkable, with a normal hemoglobin and coags. Patient is positive for COVID-19 but already being treated with Paxlovid. She had mild bleeding from the left nostril on arrival. Oxymetazoline nasal spray administered and her nose was clamped for approximately 20 minutes. Nasal clamp was removed and the patient was monitored for period of time. She was asked to get up and ambulate and move around and the bleeding did not return. She was sent home with the oxymetazoline nasal spray and nasal clamps with instructions on how to use them if the bleeding returns. Advised saline nasal spray several times each day to moisten the nasal passages and reduce the risk of recurrence. Patient discharged home in stable condition. Case discussed with ED attending Dr. Briceno. Return precautions reviewed in depth, the patient is instructed to return to the emergency department with any new, worsening, or concerning symptoms. Patient verbalized understanding. Undiagnosed new problem with uncertain prognosis? @ -None Drug Therapy requiring intensive monitoring for toxicity (Heparin, Nitro, Insulin, Cardizem)? @ -None Were any procedures done? @ -None Diagnosis/symptom? @ -Epistaxis, COVID-19 Acute, or Chronic, or Acute on Chronic? @ -Acute Uncomplicated (without systemic symptoms) or Complicated (systemic symptoms)? @ -Uncomplicated Side effects of treatment? @ -None Exacerbation, Progression, or Severe Exacerbation] @ -Not applicable Poses a threat to life or bodily function? @ -No - Lab Data Result diagrams: 03/03/24 11:55 03/03/24 11:55 Lab Results 03/03/24 03/03/24 03/03/24 Range/Units 11:55 11:55 11:55 WBC 7.2 (3.8-10.6) k/uL RBC 4.86 (3.80-5.40) m/uL Hgb 13.7 (11.4-16.0) gm/dL Hct 41.8 (34.0-46.0) % MCV 86.0 (80.0-100.0) fL MCH 28.1 (25.0-35.0) pg MCHC 32.7 (31.0-37.0) g/dL RDW 13.1 (11.5-15.5) % Plt Count 530 H (150-450) k/uL MPV 6.8 Neutrophils % 65 % Lymphocytes % 24 % Monocytes % 8 % Eosinophils % 1 % Basophils % 0 % Neutrophils # 4.7 (1.3-7.7) k/uL Lymphocytes # 1.8 (1.0-4.8) k/uL Monocytes # 0.6 (0-1.0) k/uL Eosinophils # 0.1 (0-0.7) k/uL Basophils # 0.0 (0-0.2) k/uL PT 10.5 (10.0-12.5) sec INR 0.9 (<1.2) APTT 23.0 (22.0-30.0) sec Sodium 137 (137-145) mmol/L Potassium 3.5 (3.5-5.1) mmol/L Chloride 102 (98-107) mmol/L Carbon Dioxide 26 (22-30) mmol/L Anion Gap 9 mmol/L BUN 23 H (7-17) mg/dL Creatinine 0.99 (0.52-1.04) mg/dL Est GFR (CKD-EPI)AfAm 60 (>60 ml/min/1.73 sqM) Est GFR (CKD-EPI)NonAf 52 (>60 ml/min/1.73 sqM) Glucose 99 (74-99) mg/dL Calcium 9.4 (8.4-10.2) mg/dL Total Bilirubin 0.5 (0.2-1.3) mg/dL AST 21 (14-36) U/L ALT 16 (4-34) U/L Alkaline Phosphatase 78 (38-126) U/L Total Protein 8.1 (6.3-8.2) g/dL Albumin 4.3 (3.5-5.0) g/dL Influenza Type A (PCR) (Not Detectd) Influenza Type B (PCR) (Not Detectd) RSV (PCR) (Not Detectd) SARS-CoV-2 (PCR) (Not Detectd) 03/03/24 Range/Units 12:39 WBC (3.8-10.6) k/uL RBC (3.80-5.40) m/uL Hgb (11.4-16.0) gm/dL Hct (34.0-46.0) % MCV (80.0-100.0) fL MCH (25.0-35.0) pg MCHC (31.0-37.0) g/dL RDW (11.5-15.5) % Plt Count (150-450) k/uL MPV Neutrophils % % Lymphocytes % % Monocytes % % Eosinophils % % Basophils % % Neutrophils # (1.3-7.7) k/uL Lymphocytes # (1.0-4.8) k/uL Monocytes # (0-1.0) k/uL Eosinophils # (0-0.7) k/uL Basophils # (0-0.2) k/uL PT (10.0-12.5) sec INR (<1.2) APTT (22.0-30.0) sec Sodium (137-145) mmol/L Potassium (3.5-5.1) mmol/L Chloride (98-107) mmol/L Carbon Dioxide (22-30) mmol/L Anion Gap mmol/L BUN (7-17) mg/dL Creatinine (0.52-1.04) mg/dL Est GFR (CKD-EPI)AfAm (>60 ml/min/1.73 sqM) Est GFR (CKD-EPI)NonAf (>60 ml/min/1.73 sqM) Glucose (74-99) mg/dL Calcium (8.4-10.2) mg/dL Total Bilirubin (0.2-1.3) mg/dL AST (14-36) U/L ALT (4-34) U/L Alkaline Phosphatase (38-126) U/L Total Protein (6.3-8.2) g/dL Albumin (3.5-5.0) g/dL Influenza Type A (PCR) Not Detected (Not Detectd) Influenza Type B (PCR) Not Detected (Not Detectd) RSV (PCR) Not Detected (Not Detectd) SARS-CoV-2 (PCR) Detected A (Not Detectd) Disposition Clinical Impression: Epistaxis, COVID-19 Disposition: HOME SELF-CARE Instructions (If sedation given, give patient instructions): Nosebleed (ED) Additional Instructions: Return to the emergency department with any new, worsening, or concerning symptoms. If the bleeding happens again, apply 2 sprays of the oxymetazoline nasal spray provided and clamp the nose for 15 to 20 minutes. If that is not effective you can try applying the phenylephrine nasal spray provided as 2 sprays in each nostril and then clamp the nose for another 15 to 20 minutes. Both of these can be repeated an additional time if the bleeding persists. Try using something like saline nasal spray several times daily to moisten the nasal passages and reduce the risk of recurrence. Hold your Eliquis for the next 2 days as well. Follow up with your primary care provider in 1-2 days. Is patient prescribed a controlled substance at d/c from ED?: No Referrals: Bayron Sherman DO [Primary Care Provider] - 1-2 days Time of Disposition: 14:46
[2024-03-03 14:18] VITALS: BP 137/68; PULSE 66; RESP 16; TEMP 97.6
[2024-03-03] MEDS: PHENYLEPHRINE 0.25% NASAL SPRA 1 SPRAY/ML NASAL STA (14:22)
== END 2024-03-03 14:36 | disposition home or self-care (01) ==
LOC: EC 10:44
DX: U07.1 COVID-19 (principal); R04.0 Epistaxis; Z88.8 Allergy status to other drugs, medicaments and biological substances; Z86.73 Personal history of transient ischemic attack (TIA), and cerebral infarction without residual deficits
CPT/HCPCS: 36415; 80053; 85025; 85610; 85730; 87636; 93005; 99283

== ENCOUNTER 2024-04-03 17:52 | Emergency (ER) | payer MEDICARE ==
[2024-04-03 18:04] VITALS: RESP 16
--- NOTE | 2024-04-03 18:04 | ED ---
General Adult HPI - General Stated complaint: Head wound Time Seen by Provider: 04/03/24 18:03 Source: patient, family Mode of arrival: wheelchair Limitations: no limitations - History of Present Illness Initial comments: 88-year-old female presenting with chief complaint of bleeding from a biopsy site. Patient had a biopsy taken from her [place] at the [employer] [facility] office today. She is on blood thinners. The wound was bleeding and they told her that she may need to come to the ER and get sutures - Related Data Home Medications Medication Instructions Recorded Confirmed ALPRAZolam [Xanax] 0.5 mg PO BID PRN 01/11/21 01/11/21 Atorvastatin [Lipitor] 20 mg PO HS 01/11/21 01/11/21 Calcium Carbonate [Calcium] 600 mg PO DAILY 01/11/21 01/11/21 Cholecalciferol (Vitamin D3) 75 mcg PO DAILY 01/11/21 01/11/21 [Vitamin D3 (3000 Iu)] Esomeprazole Magnesium [NexIUM] 40 mg PO DAILY 01/11/21 01/11/21 Metoprolol Succinate (ER) [Toprol 50 mg PO DAILY 01/11/21 01/11/21 Xl] Multivitamins, Thera [Multivitamin 1 tab PO DAILY 01/11/21 01/11/21 (formulary)] Sucralfate [Carafate] 1 gm PO DAILY 01/11/21 01/11/21 Vitamin E (Dl,Tocopheryl Acet) 400 unit PO DAILY 01/11/21 01/11/21 [Vitamin E] rOPINIRole HCL [Requip] 0.5 mg PO HS 01/11/21 01/11/21 Previous Rx's Medication Instructions Recorded Azithromycin [Zithromax Z Pack] 1 tab PO DIRECTED #6 tab 07/23/23 Ondansetron Odt [Zofran Odt] 4 mg PO Q8HR PRN #10 tab 07/23/23 Lidocaine 5% Patch [Lidoderm] 1 patch TOPICAL DAILY PRN #20 patch 08/17/23 Amoxicillin 500 mg PO Q8H #30 capsule 09/24/23 Allergies Allergy/AdvReac Type Severity Reaction Status Date / Time procaine [From Novocain] Allergy Unknown Verified 04/03/24 18:04 Review of Systems ROS Statement: Those systems with pertinent positive or pertinent negative responses have been documented in the HPI. ROS Other: All systems not noted in ROS Statement are negative. Past Medical History Past Medical History: CVA/TIA, GERD/Reflux, Hyperlipidemia, Hypertension Additional Past Medical History / Comment(s): vertigo History of Any Multi-Drug Resistant Organisms: None Reported Past Surgical History: Cholecystectomy, Hernia Repair, Orthopedic Surgery Past Psychological History: Anxiety Smoking Status: Never smoker Past Alcohol Use History: None Reported Past Drug Use History: None Reported General Exam - General Exam Comments Initial Comments: Visual Physical Exam Vital signs reviewed General: Well-appearing, nontoxic, no acute distress. Head: Normocephalic, atraumatic Eyes: PERRLA, EOMI ENT: Airway patent Chest: Nonlabored breathing Skin: No visual rash, normal skin tone Neuro: Alert and oriented 3 Musculoskeletal: No gross abnormalities Limitations: no limitations General appearance: alert, in no apparent distress Head exam: Present: other (Dime sized biopsy spot to the left side of forehead that is bleeding) Eye exam: Present: normal appearance, EOMI Neck exam: Present: normal inspection. Absent: meningismus Respiratory exam: Absent: respiratory distress Cardiovascular Exam: Present: regular rate Neurological exam: Present: alert, oriented X3 Psychiatric exam: Present: normal affect, normal mood Course Vital Signs 04/03/24 18:01 Temperature 97.6 F Pulse Rate 82 Respiratory 16 Rate Blood Pressure 132/78 O2 Sat by Pulse 96 Oximetry Procedures - Laceration Laceration #1 Consent Obtained: verbal consent Indication: other (biopsy wont stop bleeding) Site: face Size (cm): 2 (dime size) Description: clean Depth: simple, single layer Anesthetic Used: lidocaine 1%, without epi Anesthesia Technique: local infiltration Pre-repair: wound explored Type of Sutures: nylon Size of Sutures: 5-0 Number of Sutures: 5 Technique: simple, interrupted Patient Tolerated Procedure: well Medical Decision Making - Medical Decision Making Was pt. sent in by a medical professional or institution (, PA, DIRECT[employer], urgent care, hospital, or [facility]...) When possible be specific @ -No Did you speak to anyone other than the patient for history (EMS, parent, family, police, friend...)? What history was obtained from this source @ -No Did you review nursing and triage notes (agree or disagree)? Why? @ -I reviewed and agree with nursing and triage notes Were old charts reviewed (outside hosp., previous admission, EMS record, old EKG, old radiological studies, urgent care reports/EKG's, [facility] records)? Report findings @ -No old charts were reviewed Differential Diagnosis (chest pain, altered mental status, abdominal pain women, abdominal pain men, vaginal bleeding, weakness, fever, dyspnea, syncope, headache, dizziness, GI bleed, back pain, seizure, CVA, palpatations, mental health, musculoskeletal)? @ -Differential includes bleeding related to malignancy, coagulopathy, trauma, this is not an all-inclusive list EKG interpreted by me (3pts min.). @ -As above X-rays interpreted by me (1pt min.). @ -None done CT interpreted by me (1pt min.). @ -None done U/S interpreted by me (1pt. min.). @ -None done What testing was considered but not performed or refused? (CT, X-rays, U/S, labs)? Why? @ -None What meds were considered but not given or refused? Why? @ -None Did you discuss the management of the patient with other professionals (professionals i.e. , PA, DIRECTOR [employer], lab, RT, psych nurse, social problems specialist, party plan salesperson, teacher, risk officer, casework supervisor)? Give summary @ -No Was smoking cessation discussed for >3mins.? @ -No Was critical care preformed (if so, how long)? @ -No Were there social determinants of health that impacted care today? How? (Homelessness, low income, unemployed, alcoholism, drug addiction, transportation, low edu. Level, literacy, decrease access to med. care, intermediate, rehab)? @ -No Was there de-escalation of care discussed even if they declined (Discuss DNR or withdrawal of care, Hospice)? DNR status @ -No What co-morbidities impacted this encounter? (DM, HTN, Smoking, COPD, CAD, Cancer, CVA, ARF, Chemo, Hep., AIDS, mental health diagnosis, sleep apnea, morbid obesity)? @ -None Was patient admitted / discharged? Hospital course, mention meds given and route, prescriptions, significant lab abnormalities, going to OR and other pertinent info. @ -88-year-old female presenting with chief complaint of bleeding to the skin biopsy site on her forehead. She had a biopsy performed this afternoon her [employer] [facility] told her if it started bleeding again that she would need to come to the ER for stitches. She is on blood thinners. Sutures were applied as well as let solution. Patient is observed and has no recurrence of bleeding. Disc harged. Follow-up with PCP. Report back to ER with any new or worsening symptoms. Discussed return parameters and answered all questions. Patient conveyed verbal understanding and agreed to the plan. I discussed this case in detail with my attending Dr. Sy Undiagnosed new problem with uncertain prognosis? @ -No Drug Therapy requiring intensive monitoring for toxicity (Heparin, Nitro, I nsulin, Cardizem)? @ -No Were any procedures done? @ -Sutures applied Diagnosis/symptom? @ -Bleeding from biopsy site Acute, or Chronic, or Acute on Chronic? @ -Acute Uncomplicated (without systemic symptoms) or Complicated (systemic symptoms)? @ -Uncomplicated Side effects of treatment? @ -No Exacerbation, Progression, or Severe Exacerbation? @ -No Poses a threat to life or bodily function? How? (Chest pain, [place], [place], pneumonia, PE, COPD, DKA, ARF, appy, cholecystitis, CVA, Diverticulitis, Homicidal, Suicidal, threat to staff... and all critical care pts) @ -No Disposition Clinical Impression: Bleeding from wound Disposition: HOME SELF-CARE Condition: Good Additional Instructions: Follow-up with PCP. Report back to ER with any new or worsening symptoms. Monitor for signs of infection, including but not limited to redness, swelling, warmth, tenderness, discharge, fever. Sutures may be removed in 3-5 days Is patient prescribed a controlled substance at d/c from ED?: No Referrals: Bayron Sherman DO [Primary Care Provider] - 1-2 days Time of Disposition: 19:22
[2024-04-03] MEDS ORDERED: LIDOCAINE/EPINEPHR/TETRACAINE 5 ML BOTTLE TOPICAL ONE (18:43)
[2024-04-03] MEDS: LIDOCAINE/EPINEPHR/TETRACAINE 5 ML BOTTLE TOPICAL ONE (18:44)
[2024-04-03 19:46] VITALS: BP 130/81; PULSE 81; TEMP 97.8
== END 2024-04-03 19:46 | disposition home or self-care (01) ==
LOC: EC 17:52
CPT/HCPCS: 12011; 99283

== ENCOUNTER 2024-10-11 18:22 | Emergency (ER) | payer MEDICARE ==
[2024-10-11 18:27] VITALS: TEMP 97.3
--- NOTE | 2024-10-11 18:44 | ED ---
General Adult HPI - General Chief complaint: Arrhythmia/Palpitations Stated complaint: weakness, labored breating Time Seen by Provider: 10/11/24 18:29 Source: patient Mode of arrival: ambulatory Limitations: no limitations - History of Present Illness Initial comments: Dictation was produced using [employer] dictation software. please excuse any grammatical, word or spelling errors. Chief Complaint: 89-year-old female with history of A-fib presents to the ER for palpitations, dyspnea and URI type symptoms History of Present Illness: Patient is 89-year-old female since last night she reports having had a strong heartbeat. States that she has history of A-fib takes anticoagulation medications along with beta-blockers. Patient states that for the last couple days she is kind to had a sticky sore throat along with some very mild nasal congestion. No obvious sick contacts. Denies any cough. States that her palpitations have been intermittent. Patient has been compliant with her medications. She has no pain complaints. The ROS documented in this emergency department record has been reviewed and confirmed by me. Those systems with pertinent positive or negative responses have been documented in the HPI. All other systems are other negative and/or noncontributory. - Related Data Home Medications Medication Instructions Recorded Confirmed ALPRAZolam [Xanax] 0.5 mg PO BID PRN 01/11/21 01/11/21 Atorvastatin [Lipitor] 20 mg PO HS 01/11/21 01/11/21 Calcium Carbonate [Calcium] 600 mg PO DAILY 01/11/21 01/11/21 Cholecalciferol (Vitamin D3) 75 mcg PO DAILY 01/11/21 01/11/21 [Vitamin D3 (3000 Iu)] Esomeprazole Magnesium [NexIUM] 40 mg PO DAILY 01/11/21 01/11/21 Metoprolol Succinate (ER) [Toprol 50 mg PO DAILY 01/11/21 01/11/21 Xl] Multivitamins, Thera [Multivitamin 1 tab PO DAILY 01/11/21 01/11/21 (formulary)] Sucralfate [Carafate] 1 gm PO DAILY 01/11/21 01/11/21 Vitamin E (Dl,Tocopheryl Acet) 400 unit PO DAILY 01/11/21 01/11/21 [Vitamin E] rOPINIRole HCL [Requip] 0.5 mg PO HS 01/11/21 01/11/21 Previous Rx's Medication Instructions Recorded Azithromycin [Zithromax Z Pack] 1 tab PO DIRECTED #6 tab 07/23/23 Ondansetron Odt [Zofran Odt] 4 mg PO Q8HR PRN #10 tab 07/23/23 Lidocaine 5% Patch [Lidoderm] 1 patch TOPICAL DAILY PRN #20 patch 08/17/23 Amoxicillin 500 mg PO Q8H #30 capsule 09/24/23 Allergies Allergy/AdvReac Type Severity Reaction Status Date / Time procaine [From Novocain] Allergy Unknown Verified 10/11/24 18:27 Review of Systems ROS Statement: Those systems with pertinent positive or pertinent negative responses have been documented in the HPI. ROS Other: All systems not noted in ROS Statement are negative. Past Medical History Past Medical History: CVA/TIA, GERD/Reflux, Hyperlipidemia, Hypertension Additional Past Medical History / Comment(s): vertigo History of Any Multi-Drug Resistant Organisms: None Reported Past Surgical History: Cholecystectomy, Hernia Repair, Orthopedic Surgery Past Psychological History: Anxiety Smoking Status: Never smoker Past Alcohol Use History: None Reported Past Drug Use History: None Reported General Exam - General Exam Comments Initial Comments: PHYSICAL EXAM: General Impression: Alert and oriented x3, not in acute distress HEENT: Normocephalic atraumatic, extra-ocular movements intact, pupils equal and reactive to light bilaterally, mucous membranes moist. Cardiovascular: H irregularly irregular Chest: Able to complete full sentences, no retractions, no tachypnea Abdomen: abdomen soft, non-tender, non-distended, no organomegaly Musculoskeletal: Pulses present and equal in all extremities, no peripheral edema Motor: no focal deficits noted Neurological: CN II-XII grossly intact, no focal motor or sensory deficits noted Skin: Intact with no visualized rashes Psych: Normal affect and mood Limitations: no limitations Course Vital Signs 10/11/24 10/11/24 18:25 18:51 Temperature 97.3 F L Pulse Rate 58 L 86 Respiratory 20 16 Rate Blood Pressure 108/74 104/75 O2 Sat by Pulse 97 97 Oximetry EKG Findings - EKG Comments: EKG Findings:: My EKG interpretation: Ventricular rate 90, A-fib, QRS 82, QTc 386. No VA prolongation, no QTC prolongation, no ST or T-wave changes noted. Overall, this EKG is unremarkable Medical Decision Making - Medical Decision Making Was pt. sent in by a medical professional or institution (, PA, [employer], urgent care, hospital, or long term...) When possible be specific @ -No Did you speak to anyone other than the patient for history (EMS, parent, family, police, friend...)? What history was obtained from this source @ -No Did you review nursing and triage notes (agree or disagree)? Why? @ -I reviewed and agree with nursing and triage notes Were old charts reviewed (outside hosp., previous admission, EMS record, old EKG, old radiological studies, urgent care reports/EKG's, long term records)? Report findings @ -No old charts were reviewed Differential Diagnosis (chest pain, altered mental status, abdominal pain women, abdominal pain men, vaginal bleeding, musculoskeletal, weakness, fever, dyspnea, syncope, headache, dizziness, GI bleed, back pain, seizure, CVA, palpatations, mental health)? @ - Differential Palpitations: Ventricular arrhythmias, atrial arrhythmias, myocardial infarction, anemia, thyrotoxicosis, electrolyte imbalance, hypokalemia, pulmonary embolism, pulmonary disease, drugs, alcohol, anxiety, stress.... This is not meant to be an all-inclusive list. EKG interpreted by me (3pts min.). @ -See above X-rays interpreted by me (1pt min.). @ -Chest x-ray is nonacute CT interpreted by me (1pt min.). @ -None done U/S interpreted by me (1pt. min.). @ -None done What testing was considered but not performed or refused? (CT, X-rays, U/S, labs)? Why? @ -None What meds were considered but not given or refused? Why? @ -None Was smoking cessation discussed for >3mins.? @ -No Were there social determinants of health that impacted care today? How? (Homelessness, low income, unemployed, alcoholism, drug addiction, transportation, low edu. Level, literacy, decrease access to med. care, long term, rehab)? @ -No Was there de-escalation of care discussed even if they declined (Discuss DNR or withdrawal of care, Hospice)? DNR status @ -No What co-morbidities impacted this encounter? (DM, HTN, Smoking, COPD, CAD, Cancer, CVA, ARF, Chemo, Hep., AIDS, mental health diagnosis, sleep apnea, morbid obesity)? @ -A-fib Was patient admitted / discharged? Hospital course, mention meds given and route, prescriptions, significant lab abnormalities, going to OR and other pertinent info. @ -89-year-old female history of A-fib on all appropriate medications presents to the ER for chief complaint of feeling like her heart is beating hard. Vital signs are stable. EKG is unremarkable. Labs imaging shows no acute processes. Patient observed emergency department reevaluated at bedside at 7:53 PM found to be stable to condition. Patient agreeable for discharge advised follow-up with cardiology. Did you discuss the management of the patient with other professionals (professionals i.e. , PA, [employer], lab, RT, psych nurse, social studies teacher, furnace converter, t eacher, credit risk officer, child welfare caseworker)? Give summary @ -No Was critical care preformed (if so, how long)? @ -No Undiagnosed new problem with uncertain prognosis? @ -No Drug Therapy requiring intensive monitoring for toxicity (Heparin, Nitro, Insulin, Cardizem)? @ -No Were any procedures done? @ -No Diagnosis/symptom? Acute, or Chronic, or Acute on Chronic? Uncomplicated (without systemic symptoms) or Complicated (systemic symptoms)? @ -Palpitations Side effects of treatment? @ -No Exacerbation, Progression, or Severe Exacerbation? @ -No Poses a threat to life or bodily function? How? (Chest pain, [place], [place], pneumonia, PE, COPD, DKA, ARF, appy, cholecystitis, CVA, Diverticulitis, Homicidal, Suicidal, threat to staff... and all critical care pts) @ -No - Lab Data Result diagrams: 10/11/24 18:52 10/11/24 18:52 Lab Results 10/11/24 10/11/24 10/11/24 Range/Units 18:52 18:52 18:52 WBC 5.1 (3.8-10.6) k/uL RBC 4.53 (3.80-5.40) m/uL Hgb 12.5 (11.4-16.0) gm/dL Hct 38.4 (34.0-46.0) % MCV 84.8 (80.0-100.0) fL MCH 27.7 (25.0-35.0) pg MCHC 32.6 (31.0-37.0) g/dL RDW 13.8 (11.5-15.5) % Plt Count 371 (150-450) k/uL MPV 7.7 Neutrophils % 56 % Lymphocytes % 29 % Monocytes % 9 % Eosinophils % 3 % Basophils % 0 % Neutrophils # 2.9 (1.3-7.7) k/uL Lymphocytes # 1.5 (1.0-4.8) k/uL Monocytes # 0.5 (0-1.0) k/uL Eosinophils # 0.1 (0-0.7) k/uL Basophils # 0.0 (0-0.2) k/uL PT (10.0-12.5) sec INR (<1.2) APTT (22.0-30.0) sec Sodium 137 (137-145) mmol/L Potassium (3.5-5.1) mmol/L Chloride 104 (98-107) mmol/L Carbon Dioxide 26 (22-30) mmol/L Anion Gap 7 mmol/L BUN 25 H (7-17) mg/dL Creatinine 1.10 H (0.52-1.04) mg/dL Est GFR (CKD-EPI)AfAm 52 (>60 ml/min/1.73 sqM) Est GFR (CKD-EPI)NonAf 45 (>60 ml/min/1.73 sqM) Glucose 95 (74-99) mg/dL Calcium 9.0 (8.4-10.2) mg/dL Magnesium 2.3 (1.6-2.3) mg/dL Troponin I (0.000-0.034) ng/mL NT-Pro-B Natriuret Pep 6150 pg/mL Influenza Type A (PCR) Not Detected (Not Detectd) Influenza Type B (PCR) Not Detected (Not Detectd) RSV (PCR) Not Detected (Not Detectd) SARS-CoV-2 (PCR) Not Detected (Not Detectd) 10/11/24 10/11/24 Range/Units 18:52 18:52 WBC (3.8-10.6) k/uL RBC (3.80-5.40) m/uL Hgb (11.4-16.0) gm/dL Hct (34.0-46.0) % MCV (80.0-100.0) fL MCH (25.0-35.0) pg MCHC (31.0-37.0) g/dL RDW (11.5-15.5) % Plt Count (150-450) k/uL MPV Neutrophils % % Lymphocytes % % Monocytes % % Eosinophils % % Basophils % % Neutrophils # (1.3-7.7) k/uL Lymphocytes # (1.0-4.8) k/uL Monocytes # (0-1.0) k/uL Eosinophils # (0-0.7) k/uL Basophils # (0-0.2) k/uL PT 11.3 (10.0-12.5) sec INR 1.0 (<1.2) APTT 24.9 (22.0-30.0) sec Sodium (137-145) mmol/L Potassium (3.5-5.1) mmol/L Chloride (98-107) mmol/L Carbon Dioxide (22-30) mmol/L Anion Gap mmol/L BUN (7-17) mg/dL Creatinine (0.52-1.04) mg/dL Est GFR (CKD-EPI)AfAm (>60 ml/min/1.73 sqM) Est GFR (CKD-EPI)NonAf (>60 ml/min/1.73 sqM) Glucose (74-99) mg/dL Calcium (8.4-10.2) mg/dL Magnesium (1.6-2.3) mg/dL Troponin I 0.014 (0.000-0.034) ng/mL NT-Pro-B Natriuret Pep pg/mL Influenza Type A (PCR) (Not Detectd) Influenza Type B (PCR) (Not Detectd) RSV (PCR) (Not Detectd) SARS-CoV-2 (PCR) (Not Detectd) Disposition Clinical Impression: Palpitations Disposition: HOME SELF-CARE Condition: Good Instructions (If sedation given, give patient instructions): Heart Palpitations (ED) Is patient prescribed a controlled substance at d/c from ED?: No Referrals: Bayron Sherman DO [Primary Care Provider] - 1-2 days Time of Disposition: 19:54
[2024-10-11 19:06] LABS: Basophils % (A) 0 %; Eosinophils # (A) 0.1 k/uL (0-0.7); Eosinophils % (A) 3 %; HCT 38.4 % (34.0-46.0); HGB 12.5 gm/dL (11.4-16.0); Lymphocytes # (A) 1.5 k/uL (1.0-4.8); Lymphocytes % (A) 29 %; MCH 27.7 pg (25.0-35.0); MCHC 32.6 g/dL (31.0-37.0); MCV 84.8 fL (80.0-100.0); Mean Platelet Volume 7.7; Monocytes # (A) 0.5 k/uL (0-1.0); Monocytes % (A) 9 %; Neutrophils # (A) 2.9 k/uL (1.3-7.7); Neutrophils % (A) 56 %; Platelet Count 371 k/uL (150-450); RBC 4.53 m/uL (3.80-5.40); RDW 13.8 % (11.5-15.5); WBC 5.1 k/uL (3.8-10.6)
--- NOTE | 2024-10-11 19:08 | XR ---
EXAMINATION TYPE: XR chest 2V DATE OF EXAM: 10/11/2024 7:03 PM COMPARISON: 08/17/2023 CLINICAL INDICATION: Female, 89 years old with history of dyspnea: Shortness of breath TECHNIQUE: XR chest 2V views of the chest are obtained. FINDINGS: Scattered senescent parenchymal changes noted. Hyperinflation compatible with COPD. No evidence for infiltrate. No evidence for atelectasis. Heart size is stable. Mediastinal structures are stable and grossly unremarkable. No evidence for hilar prominence. Degenerative changes dorsal spine. IMPRESSION: 1. No evidence for acute pulmonary disease. [facility], , 10/11/2024 7:06 PM
[2024-10-11 19:20] LABS: African American GFR (CKD) 52 (>60 ml/min/1.73 sqM); Anion Gap 7 mmol/L; Blood Urea Nitrogen 25 mg/dL (7-17); Carbon Dioxide 26 mmol/L (22-30); Chloride 104 mmol/L (98-107); Glucose 95 mg/dL (74-99); Non-African American GFR(CKD) 45 (>60 ml/min/1.73 sqM); Sodium 137 mmol/L (137-145)
[2024-10-11 19:22] LABS: Magnesium 2.3 mg/dL (1.6-2.3)
[2024-10-11 19:29] LABS: NT-Pro-B-Type Natriuretic Pept 6150 pg/mL
[2024-10-11 19:31] LABS: Partial Thromboplastin Time 24.9 sec (22.0-30.0); Prothrombin Time 11.3 sec (10.0-12.5)
[2024-10-11 19:43] LABS: Influenza A Not Detected (Not Detectd); Influenza B Not Detected (Not Detectd); RSV Not Detected (Not Detectd)
[2024-10-11 20:23] VITALS: BP 126/89; PULSE 80; RESP 18
== END 2024-10-11 20:31 | disposition home or self-care (01) ==
LOC: EC 18:22
DX: R00.2 Palpitations (principal); Z86.79 Personal history of other diseases of the circulatory system
CPT/HCPCS: 36415; 71046; 80048; 83735; 83880; 84484; 85025; 85610; 85730; 87636; 93005; 99285